=== PATIENT | male | born 1965 | race Caucasian/White ===

== ENCOUNTER 2018-11-03 11:08 | Emergency (ER) | payer MEDICARE ==
[2018-11-03 12:05] LABS: BASOPHIL % 0.5 % (0.0-0.4); Basophil (Absolute #) 0.03 (0-0.4); Eosinophil % 2.9 % (0.00-5.0); Eosinophil (Absolute #) 0.17 (0-0.5); Granulocyte Absolute (ANC) 3.25 (1.4-6.9); Granulocytes % 55.1 % (36.0-66.0); Hematocrit 39.3 % (42-50); Hemoglobin 14.2 gm/dl (12.5-18.0); Lymphocyte (Absolute #) 1.89 (1.0-4.6); Mean Cell Volume 86.2 fl (78-100); Mean Corpuscular Hemoglobin 31.1 pg (26-32); Mean Corpuscular Hgb Concent. 36.1 g/dl (32-36); Mean Platelet Volume 8.7 fl (6-9.5); Monocyte (Absolute #) 0.56 (0.0-1.3); Monocytes % 9.5 % (0.0-12.0); Platelet Count 349 K/mm3 (150-450); Red Blood Count 4.56 M/mm3 (4.1-5.6); Red Cell Distribution Width 13.6 % (11.5-14.0); White Blood Count 5.9 K/mm3 (4.0-10.5)
[2018-11-03 12:32] LABS: ALBUMIN 3.9 g/dL (3.5-5.0); ALKALINE PHOSPHATASE 98 U/L (38-126); ANION GAP 9.6 MEQ/L (5-15); BLOOD UREA NITROGEN 9 mg/dL (9-20); CHLORIDE 105 mmol/L (98-107); Calcium 8.8 mg/dL (8.4-10.2); Carbon Dioxide 28 mmol/L (22-30); Creatinine 1 0.86 mg/dL (0.66-1.25); Glucose 97 mg/dL (74-106); Potassium 3.6 mmol/L (3.5-5.1); SGOT/AST 24 U/L (17-59); SGPT/ALT 24 U/L (0-50); SODIUM 139 mmol/L (137-145); Total Protein 6.9 g/dL (6.3-8.2)
--- NOTE | 2018-11-03 16:03 | ERPHSYRPT ---
- History of Present Illness Historian: patient Exam Limitations: no limitations Patient Subjective Stated Complaint: STATES HAD SUDDEN ONSET OF CHEST PAIN THIS AM AT 0130. TOOK A NTG WITH RELIEF. PAIN CAME BACK JUST PRIOR TO ARRIVAL AND TOOK ANOTHER NITRO WITH RELIEF. Triage Nursing Assessment: AMBULATED TO ROOM PER SELF. SKIN W/D, COLOR NORMAL, RESP NONLABORED. HEART TONES REGULAR. Physician History: Pt is a 52 y/o male that woke up in the middle of the night with chest pain. He took a Nitro tab and went back to sleep. Then in the morning he had chest pain again, and he took another Nitro tab and came to the ER. The pt states, no abdominal pain. No N/V/D or diaphoresis. he had a cardiac cath recently that was negative. Pt states, the chest pain is not reproducible, no SOB or cough. No dysuria, frequency or urgency. Timing/Duration: today Activities at Onset: sleep Quality: pressure, tightness Location: substernal, back Chest Pain Radiation: back Severity of Pain-Max: moderate Severity of Pain-Current: moderate Modifying Factors: Improves With: nitroglycerin Associated Symptoms: back pain Prior Chest Pain/Cardiac Workup: cardiac cath Nitro Today/Relief: 0.4 mg x 2 Aspirin Treatment Today: no aspirin today Allergies/Adverse Reactions: Penicillins Allergy (Verified 11/03/18 11:26) Hx Tetanus, Diphtheria Vaccination/Date Given: Yes Hx Influenza Vaccination/Date Given: Yes Hx Pneumococcal Vaccination/Date Given: No - Review of Systems Constitutional: No Fever, No Chills Eyes: No Symptoms Ears, Nose, & Throat: No Symptoms Respiratory: No Cough, No Dyspnea Cardiac: Chest Pain, No Edema, No Syncope Abdominal/Gastrointestinal: No Abdominal Pain, No Nausea, No Vomiting, No Diarrhea Genitourinary Symptoms: No Dysuria Musculoskeletal: Back Pain Skin: No Rash Neurological: No Dizziness, No Focal Weakness, No Sensory Changes - Past Medical History Pertinent Past Medical History: Yes Endocrine Medical History: Thyroid Cancer Other Medical History: THYROID CANCER WITH METS - Past Surgical History Past Surgical History: Yes Other Surgical History: THYROIDECTOMY, ESOPHAGUS SURGERY - Social History Smoking Status: Never smoker Exposure to second hand smoke: Yes Drug Use: none Patient Lives Alone: No - Nursing Vital Signs Nursing Vital Signs: Initial Vital Signs Temperature 98.5 F 11/03/18 11:09 Pulse Rate 90 11/03/18 11:09 Respiratory Rate 16 11/03/18 11:09 Blood Pressure 162/92 11/03/18 11:09 O2 Sat by Pulse Oximetry 98 11/03/18 11:09 Pain Scale Pain Intensity 2 - Physical Exam General Appearance: no apparent distress, alert Eye Exam: PERRL/EOMI, eyes nml inspection Ears, Nose, Throat Exam: normal ENT inspection, moist mucous membranes Neck Exam: normal inspection, non-tender, supple, full range of motion Respiratory Exam: normal breath sounds, lungs clear, No respiratory distress Cardiovascular Exam: regular rate/rhythm, normal heart sounds Gastrointestinal/Abdomen Exam: soft, No tenderness, No mass Back Exam: normal inspection, No CVA tenderness, No vertebral tenderness Extremity Exam: normal inspection, normal range of motion SpO2: 96 - Course Nursing assessment & vital signs reviewed: Yes EKG Interpreted by Me: RATE (89bpm), Non-specific ST Changes Ordered Tests: Active Orders 24 hr Category Date Time Status CBC W DIFF Stat Lab 11/03/18 11:50 Completed CMP Stat Lab 11/03/18 11:50 Completed D-DIMER QUANTITATION Stat Lab 11/03/18 11:50 Completed NT PRO BNP Stat Lab 11/03/18 11:50 Completed TROPONIN Q3H Lab 11/03/18 11:50 Completed TROPONIN Q3H Lab 11/03/18 14:55 Completed TROPONIN Q3H Lab 11/03/18 17:45 Ordered TROPONIN Q3H Lab 11/03/18 20:45 Ordered TROPONIN Q3H Lab 11/03/18 23:45 Ordered TSH [TSH, 3RD Generation] Stat Lab 11/03/18 11:50 Completed Lab/Rad Data: Laboratory Result Diagrams 11/03/18 11:50 11/03/18 11:50 Laboratory Results 11/03/18 11/03/18 11/03/18 Range/Units 14:55 11:50 11:50 WBC (4.0-10.5) K/mm3 RBC (4.1-5.6) M/mm3 Hgb (12.5-18.0) gm/dl Hct (42-50) % MCV (78-100) fl MCH (26-32) pg MCHC (32-36) g/dl RDW (11.5-14.0) % Plt Count (150-450) K/mm3 MPV (6-9.5) fl Gran % (36.0-66.0) % Eos # (Auto) (0-0.5) Absolute Lymphs (auto) (1.0-4.6) Absolute Monos (auto) (0.0-1.3) Lymphocytes % (24.0-44.0) % Monocytes % (0.0-12.0) % Eosinophils % (0.00-5.0) % Basophils % (0.0-0.4) % Absolute Granulocytes (1.4-6.9) Basophils # (0-0.4) D-Dimer (215-500) ng/mL Sodium (137-145) mmol/L Potassium (3.5-5.1) mmol/L Chloride (98-107) mmol/L Carbon Dioxide (22-30) mmol/L Anion Gap (5-15) MEQ/L BUN (9-20) mg/dL Creatinine (0.66-1.25) mg/dL Estimated GFR ML/MIN Glucose (74-106) mg/dL Calcium (8.4-10.2) mg/dL Total Bilirubin (0.2-1.3) mg/dL AST (17-59) U/L ALT (0-50) U/L Alkaline Phosphatase (38-126) U/L Troponin I < 0.012 < 0.012 (0.000-0.034) ng/mL NT-Pro-B Natriuret Pep (0-900) pg/mL Serum Total Protein (6.3-8.2) g/dL Albumin (3.5-5.0) g/dL TSH 3rd Generation 11.900 H (0.47-4.68) mIU/L 11/03/18 11/03/18 11/03/18 Range/Units 11:50 11:50 11:50 WBC 5.9 (4.0-10.5) K/mm3 RBC 4.56 (4.1-5.6) M/mm3 Hgb 14.2 (12.5-18.0) gm/dl Hct 39.3 L (42-50) % MCV 86.2 (78-100) fl MCH 31.1 (26-32) pg MCHC 36.1 H (32-36) g/dl RDW 13.6 (11.5-14.0) % Plt Count 349 (150-450) K/mm3 MPV 8.7 (6-9.5) fl Gran % 55.1 (36.0-66.0) % Eos # (Auto) 0.17 (0-0.5) Absolute Lymphs (auto) 1.89 (1.0-4.6) Absolute Monos (auto) 0.56 (0.0-1.3) Lymphocytes % 32.0 (24.0-44.0) % Monocytes % 9.5 (0.0-12.0) % Eosinophils % 2.9 (0.00-5.0) % Basophils % 0.5 (0.0-0.4) % Absolute Granulocytes 3.25 (1.4-6.9) Basophils # 0.03 (0-0.4) D-Dimer < 215 L (215-500) ng/mL Sodium 139 (137-145) mmol/L Potassium 3.6 (3.5-5.1) mmol/L Chloride 105 (98-107) mmol/L Carbon Dioxide 28 (22-30) mmol/L Anion Gap 9.6 (5-15) MEQ/L BUN 9 (9-20) mg/dL Creatinine 0.86 (0.66-1.25) mg/dL Estimated GFR > 60.0 ML/MIN Glucose 97 (74-106) mg/dL Calcium 8.8 (8.4-10.2) mg/dL Total Bilirubin 0.40 (0.2-1.3) mg/dL AST 24 (17-59) U/L ALT 24 (0-50) U/L Alkaline Phosphatase 98 (38-126) U/L Troponin I (0.000-0.034) ng/mL NT-Pro-B Natriuret Pep 31.0 (0-900) pg/mL Serum Total Protein 6.9 (6.3-8.2) g/dL Albumin 3.9 (3.5-5.0) g/dL TSH 3rd Generation (0.47-4.68) mIU/L - Progress Progress: improved Air Movement: good Progress Note: 11/03/18 16:01 Pt was seen and examined. Troponins x2 were negative. TSH was elevated. D Dimer is negative, Pro BNP, CBC and BMP are all normal. Pt was cleared for d/ c. He should f/u with his PCP, regarding his Synthroid dose and FT4 level work up. Blood Culture(s) Obtained: No Antibiotics given: No Will see patient in: office Counseled pt/family regarding: need for follow-up - Departure Departure Disposition: Home Clinical Impression: Chest pain Condition: Stable Critical Care Time: No Referrals: ATTILA KAPOOR [Primary Care Provider] - Additional Instructions: F/U with PCP. Make sure that FT4 and TSH are checked and meds are adjusted.
[2018-11-03 16:37] VITALS: BP 177/109; PULSE 72; O2SAT 95
== END 2018-11-03 16:32 | disposition home or self-care (01) ==
LOC: ED 11:08
DX: R07.89 Other chest pain (principal); Z85.850 Personal history of malignant neoplasm of thyroid
CPT/HCPCS: 36000; 36415; 80053; 83880; 84443; 84484; 85025; 85379; 99284

== ENCOUNTER 2019-03-05 10:11 | Emergency (ER) | payer MEDICARE ==
--- NOTE | 2019-03-05 10:19 | ERPHSYRPT ---
- History of Present Illness Time Seen by Provider: 03/05/19 10:19 Historian: patient Exam Limitations: no limitations Physician History: 53 y/o white male with h/o htn and no abd surgeries presents with right side abd pain for 2 weeks and dizziness and a brief change in vision this am. pt took his bp meds this am. n/v this am. no diarrhea. no other flu like sx. Timing/Duration: week(s) (2) Activities at Onset: none Quality: aching Abdominal Pain Onset Location: RUQ, RLQ Pain Radiation: back Severity of Pain-Max: moderate Severity of Pain-Current: moderate Associated Symptoms: nausea, vomiting, No chest pain, No fever/chills Previous symptoms: no prior history Allergies/Adverse Reactions: Penicillins Allergy (Verified 03/05/19 10:36) Home Medications: Albuterol Sulfate [Albuterol Sulfate Hfa] 2 puffs IH QID 03/05/19 [History] Levothyroxine Sodium 150 Mcg [Synthroid 150 Mcg] 150 mcg PO DAILY 03/05/19 [History] Methylphenidate HCl [Methylphenidate ER] 20 mg PO BID 03/05/19 [History] Propranolol HCl 20 mg [Inderal 20 MG] 20 mg PO TID 03/05/19 [History] Tiotropium Br/Olodaterol HCl [Stiolto Respimat Inhal [place]] 2 puffs IH DAILY [History] Hx Tetanus, Diphtheria Vaccination/Date Given: Yes Hx Influenza Vaccination/Date Given: Yes Hx Pneumococcal Vaccination/Date Given: No - Review of Systems Constitutional: No Symptoms Eyes: No Symptoms Ears, Nose, & Throat: No Symptoms Respiratory: No Symptoms Cardiac: No Symptoms, No Chest Pain, No Palpitations, No Syncope Abdominal/Gastrointestinal: Abdominal Pain, Nausea, Vomiting, No Diarrhea Genitourinary Symptoms: No Symptoms Musculoskeletal: No Symptoms Skin: No Symptoms Neurological: Dizziness, Other (brief changes) Psychological: No Symptoms Endocrine: No Symptoms Hematologic/Lymphatic: No Symptoms Immunological/Allergic: No Symptoms All Other Systems: Reviewed and Negative - Past Medical History Pertinent Past Medical History: Yes Neurological History: No Pertinent History ENT History: No Pertinent History Cardiac History: No Pertinent History Respiratory History: No Pertinent History Endocrine Medical History: Thyroid Cancer Musculoskeletal History: No Pertinent History GI Medical History: No Pertinent History History: No Pertinent History Psycho-Social History: No Pertinent History Male Reproductive Disorders: No Pertinent History Other Medical History: THYROID CANCER WITH METS - Past Surgical History Past Surgical History: Yes Neuro Surgical History: No Pertinent History Cardiac: No Pertinent History Respiratory: No Pertinent History Gastrointestinal: No Pertinent History Genitourinary: No Pertinent History Musculoskeletal: No Pertinent History Male Surgical History: No Pertinent History Other Surgical History: THYROIDECTOMY, ESOPHAGUS SURGERY - Social History Smoking Status: Never smoker Exposure to second hand smoke: Yes Drug Use: none Patient Lives Alone: No - Nursing Vital Signs Nursing Vital Signs: Initial Vital Signs Temperature 97.9 F 03/05/19 10:17 Pulse Rate 84 03/05/19 10:17 Respiratory Rate 20 03/05/19 10:17 Blood Pressure 210/143 03/05/19 10:17 O2 Sat by Pulse Oximetry 100 03/05/19 10:17 Pain Scale Pain Intensity 0 - Physical Exam General Appearance: no apparent distress, alert, anxiety Eye Exam: PERRL/EOMI, eyes nml inspection Ears, Nose, Throat Exam: normal ENT inspection, moist mucous membranes Neck Exam: normal inspection, non-tender, supple, full range of motion Respiratory Exam: normal breath sounds, lungs clear, airway intact, No chest tenderness, No respiratory distress Cardiovascular Exam: regular rate/rhythm, normal heart sounds, normal peripheral pulses Gastrointestinal/Abdomen Exam: soft, normal bowel sounds, tenderness (right side ), guarding, No distention, No mass, No rebound Rectal Exam: not done Back Exam: normal inspection, normal range of motion, No CVA tenderness, No vertebral tenderness Extremity Exam: normal inspection, normal range of motion, pelvis stable Neurologic Exam: alert, oriented x 3, cooperative, decoration checker II-XII nml as tested Skin Exam: normal color, warm, dry Lymphatic Exam: No adenopathy SpO2 Interpretation: normal O2 Delivery: Room Air - Course Nursing assessment & vital signs reviewed: Yes EKG Interpreted by Me: RATE (78), Sinus Rhythm, NORMAL AXIS, NORMAL INTERVALS, NORMAL QRS, Right Bundle Branch Block, Other (left ant fascicular block) Ordered Tests: Active Orders 24 hr Category Date Time Status EKG-ER Only STAT Care 03/05/19 10:43 Active IV Insertion STAT Care 03/05/19 10:43 Active ABDOMEN AND PELVIS W/0 CONTRAS [CT] Stat Exams 03/05/19 10:44 Completed HEAD WITHOUT CONTRAST [CT] Stat Exams 03/05/19 10:45 Completed AMYLASE Stat Lab 03/05/19 10:55 Completed CBC W DIFF Stat Lab 03/05/19 10:55 Completed CMP Stat Lab 03/05/19 10:55 Completed LIPASE Stat Lab 03/05/19 10:55 Completed Lactic Acid Stat Lab 03/05/19 10:58 Completed Lactic Acid Stat Lab 03/05/19 13:00 Ordered TROPONIN Q3H Lab 03/05/19 10:55 Completed TROPONIN Q3H Lab 03/05/19 13:45 Ordered TROPONIN Q3H Lab 03/05/19 16:45 Ordered TROPONIN Q3H Lab 03/05/19 19:45 Ordered TROPONIN Q3H Lab 03/05/19 22:45 Ordered UA W/RFX UR CULTURE Stat Lab 03/05/19 12:28 Completed Medication Summary Discontinued Medications Generic Name Dose Route Start Last Admin Trade Name Freq PRN Reason Stop Dose Admin Hydromorphone HCl 1 mg 03/05/19 13:09 03/05/19 13:17 Hydromorphone 1 Mg/Ml Ampule IV 03/05/19 13:10 1 mg STAT ONE Administration Hydromorphone HCl Confirm 03/05/19 13:15 Hydromorphone 1 Mg/Ml Ampule Administered 03/05/19 13:16 Dose 1 mg .ROUTE .STK-MED ONE Metoprolol Tartrate 5 mg 03/05/19 12:35 03/05/19 12:45 Lopressor 5 Mg/5 Ml Injection IV 03/05/19 12:36 5 mg STAT ONE Administration Metoprolol Tartrate Confirm 03/05/19 12:43 Lopressor 5 Mg/5 Ml Injection Administered 03/05/19 12:44 Dose 5 mg IV .STK-MED ONE Ondansetron HCl 4 mg 03/05/19 10:43 03/05/19 10:49 Zofran 4 Mg/2 Ml Vial IV 03/05/19 10:44 4 mg STAT ONE Administration Ondansetron HCl Confirm 03/05/19 10:47 Zofran 4 Mg/2 Ml Vial Administered 03/05/19 10:48 Dose 4 mg .ROUTE .STK-MED ONE Potassium Chloride 10 meq 03/05/19 12:47 03/05/19 13:18 Klor Con 10 Meq PO 03/05/19 12:48 10 meq STAT ONE Administration Potassium Chloride Confirm 03/05/19 13:14 Klor Con 10 Meq Administered 03/05/19 13:15 Dose 10 meq PO .STK-MED ONE Lab/Rad Data: Laboratory Result Diagrams 03/05/19 10:55 03/05/19 10:55 Laboratory Results 03/05/19 03/05/19 03/05/19 Range/Units 12:28 10:58 10:55 WBC (4.0-10.5) K/mm3 RBC (4.1-5.6) M/mm3 Hgb (12.5-18.0) gm/dl Hct (42-50) % MCV (78-100) fl MCH (26-32) pg MCHC (32-36) g/dl RDW (11.5-14.0) % Plt Count (150-450) K/mm3 MPV (6-9.5) fl Gran % (36.0-66.0) % Eos # (Auto) (0-0.5) Absolute Lymphs (auto) (1.0-4.6) Absolute Monos (auto) (0.0-1.3) Lymphocytes % (24.0-44.0) % Monocytes % (0.0-12.0) % Eosinophils % (0.00-5.0) % Basophils % (0.0-0.4) % Absolute Granulocytes (1.4-6.9) Basophils # (0-0.4) Sodium (137-145) mmol/L Potassium (3.5-5.1) mmol/L Chloride (98-107) mmol/L Carbon Dioxide (22-30) mmol/L Anion Gap (5-15) MEQ/L BUN (9-20) mg/dL Creatinine (0.66-1.25) mg/dL Estimated GFR ML/MIN Glucose (74-106) mg/dL Lactic Acid 1.9 (0.4-2.0) Calcium (8.4-10.2) mg/dL Total Bilirubin (0.2-1.3) mg/dL AST (17-59) U/L ALT (0-50) U/L Alkaline Phosphatase (38-126) U/L Troponin I < 0.012 (0.000-0.034) ng/mL Serum Total Protein (6.3-8.2) g/dL Albumin (3.5-5.0) g/dL Amylase (30-110) U/L Lipase (23-300) U/L Urine Color STRAW (YELLOW) Urine Appearance CLEAR (CLEAR) Urine pH 7.0 (5-6) Ur Specific [place] 1.005 (1.005-1.025) Urine Protein NEGATIVE (Negative) Urine Ketones NEGATIVE (NEGATIVE) Urine Blood NEGATIVE (0-5) Mendoza/ul Urine Nitrite NEGATIVE (NEGATIVE) Urine Bilirubin NEGATIVE (NEGATIVE) Urine Urobilinogen NEGATIVE (0-1) mg/dL Ur Leukocyte Esterase NEGATIVE (NEGATIVE) Urine WBC (Auto) 0-2 (0-5) /HPF Urine RBC (Auto) 0-2 (0-2) /HPF U Epithel Cells (Auto) RARE (FEW) /HPF Urine Bacteria (Auto) RARE (NEGATIVE) /HPF Urine Culture Reflexed NO (NO) Urine Glucose NEGATIVE (NEGATIVE) mg/dL 03/05/19 03/05/19 Range/Units 10:55 10:55 WBC 6.9 (4.0-10.5) K/mm3 RBC 4.72 (4.1-5.6) M/mm3 Hgb 13.9 (12.5-18.0) gm/dl Hct 40.9 L (42-50) % MCV 86.7 (78-100) fl MCH 29.4 (26-32) pg MCHC 34.0 (32-36) g/dl RDW 15.2 H (11.5-14.0) % Plt Count 415 (150-450) K/mm3 MPV 9.1 (6-9.5) fl Gran % 52.4 (36.0-66.0) % Eos # (Auto) 0.28 (0-0.5) Absolute Lymphs (auto) 2.22 (1.0-4.6) Absolute Monos (auto) 0.70 (0.0-1.3) Lymphocytes % 32.3 (24.0-44.0) % Monocytes % 10.2 (0.0-12.0) % Eosinophils % 4.1 (0.00-5.0) % Basophils % 1.0 (0.0-0.4) % Absolute Granulocytes 3.60 (1.4-6.9) Basophils # 0.07 (0-0.4) Sodium 143 (137-145) mmol/L Potassium 3.1 L (3.5-5.1) mmol/L Chloride 103 (98-107) mmol/L Carbon Dioxide 30 (22-30) mmol/L Anion Gap 13.2 (5-15) MEQ/L BUN 9 (9-20) mg/dL Creatinine 0.87 (0.66-1.25) mg/dL Estimated GFR > 60.0 ML/MIN Glucose 114 H (74-106) mg/dL Lactic Acid (0.4-2.0) Calcium 9.4 (8.4-10.2) mg/dL Total Bilirubin 0.40 (0.2-1.3) mg/dL AST 33 (17-59) U/L ALT 42 (0-50) U/L Alkaline Phosphatase 84 (38-126) U/L Troponin I (0.000-0.034) ng/mL Serum Total Protein 7.9 (6.3-8.2) g/dL Albumin 4.3 (3.5-5.0) g/dL Amylase 81 (30-110) U/L Lipase 162 (23-300) U/L Urine Color (YELLOW) Urine Appearance (CLEAR) Urine pH (5-6) Ur Specific [place] (1.005-1.025) Urine Protein (Negative) Urine Ketones (NEGATIVE) Urine Blood (0-5) Mendoza/ul Urine Nitrite (NEGATIVE) Urine Bilirubin (NEGATIVE) Urine Urobilinogen (0-1) mg/dL Ur Leukocyte Esterase (NEGATIVE) Urine WBC (Auto) (0-5) /HPF Urine RBC (Auto) (0-2) /HPF U Epithel Cells (Auto) (FEW) /HPF Urine Bacteria (Auto) (NEGATIVE) /HPF Urine Culture Reflexed (NO) Urine Glucose (NEGATIVE) mg/dL - Progress Progress: improved Progress Note: 03/05/19 13:22 ct abd/pelvis-negative for acute process ct head-negative for acute process. 03/05/19 13:25 spoke again with pt. he in fact did not take his bp meds as prescribed. he does not want admission or transfer for tx of his bp. Counseled pt/family regarding: lab results, diagnosis, need for follow-up, rad results - Departure Departure Disposition: Home Clinical Impression: Abdominal pain, Dizziness, Hypokalemia, Hypertensive urgency Condition: Stable Critical Care Time: Yes Critical Care Time(excluding separately billable procedures): Critical 30-74 mins Referrals: ATTILA KAPOOR [Primary Care Provider] - Additional Instructions: take your blood pressure medications as prescribed. follow up with your prescribing doctor for any changes to your blood pressure medications.
[2019-03-05] MEDS ORDERED: Zofran 4 MG/2 ML VIAL IV ONE (10:43)
[2019-03-05] MEDS ORDERED: Zofran 4 MG/2 ML VIAL ONE (10:47)
[2019-03-05 10:59] LABS: Basophil (Absolute #) 0.07 (0-0.4); Eosinophil % 4.1 % (0.00-5.0); Eosinophil (Absolute #) 0.28 (0-0.5); Hematocrit 40.9 % (42-50); Hemoglobin 13.9 gm/dl (12.5-18.0); Lymphocyte (Absolute #) 2.22 (1.0-4.6); Lymphocytes % 32.3 % (24.0-44.0); Mean Cell Volume 86.7 fl (78-100); Mean Corpuscular Hemoglobin 29.4 pg (26-32); Mean Platelet Volume 9.1 fl (6-9.5); Monocytes % 10.2 % (0.0-12.0); Neutrophil % 52.4 % (36.0-66.0); Platelet Count 415 K/mm3 (150-450); Red Blood Count 4.72 M/mm3 (4.1-5.6); Red Cell Distribution Width 15.2 % (11.5-14.0); White Blood Count 6.9 K/mm3 (4.0-10.5)
[2019-03-05 11:01] LABS: Lactic Acid 1.9 (0.4-2.0)
--- NOTE | 2019-03-05 11:48 | XRAY ---
Indication: Dizziness. Blindness. Multiple contiguous axial images obtained through the head without contrast. Comparison: None Ventriculosulcal pattern appears symmetric. Right basal ganglia remote lacunar infarct. No acute intracranial hemorrhage, abnormal extra-axial fluid question, or mass effect. Fourth ventricle is midline without hydrocephalus. Barron-white matter differentiation preserved. Bony calvarium intact. Visualized paranasal sinuses and mastoid air cells are clear. Impression: Right basal ganglia remote lacunar infarct. Remaining CT head without contrast exam is negative. CTDI 59.55
--- NOTE | 2019-03-05 11:54 | XRAY ---
Indication: Chest/abdomen pain 1 year. Multiple contiguous axial images obtained through the abdomen and pelvis without contrast as ordered. Comparison: CT renal stone study June 09, 2006. Lung bases again demonstrates minimal left base fibrosis/scarring. No infiltrate or effusion. Heart is not enlarged. Interval enlarging moderate-sized hiatal hernia with now partial intrathoracic stomach and mild herniated omental fat. Noncontrasted stomach and bowel loops appear nonobstructed. Normal appendix. Minimal scattered descending and sigmoid diverticulosis. No free fluid/air. Again diffuse fatty liver. Remaining liver, gallbladder, pancreas, spleen, adrenal glands, kidneys, ureters, and bladder appear unremarkable for noncontrast exam. Minimal aortic calcifications without AAA. Osseous structures intact with mild degenerative changes throughout the lumbar spine. Impression: 1. Worsening moderate-sized hiatal hernia. 2. Incidental fatty liver and colonic diverticulosis. 3. Remaining CT abdomen/pelvis without contrast exam is negative. CT DI 24.14
[2019-03-05 12:08] LABS: ALBUMIN 4.3 g/dL (3.5-5.0); ALKALINE PHOSPHATASE 84 U/L (38-126); AMYLASE 81 U/L (30-110); ANION GAP 13.2 MEQ/L (5-15); BLOOD UREA NITROGEN 9 mg/dL (9-20); CHLORIDE 103 mmol/L (98-107); Calcium 9.4 mg/dL (8.4-10.2); Carbon Dioxide 30 mmol/L (22-30); Creatinine 1 0.87 mg/dL (0.66-1.25); Glucose 114 mg/dL (74-106); LIPASE 162 U/L (23-300); SGOT/AST 33 U/L (17-59); SGPT/ALT 42 U/L (0-50); SODIUM 143 mmol/L (137-145); Total Protein 7.9 g/dL (6.3-8.2)
[2019-03-05 12:10] LABS: Potassium 3.1 mmol/L (3.5-5.1)
[2019-03-05] MEDS ORDERED: LOPRESSOR 5 MG/5 ML INJECTION IV ONE ×2 (12:35→12:43)
[2019-03-05] MEDS ORDERED: Klor Con 10 MEQ PO ONE ×2 (12:47→13:14)
[2019-03-05 13:07] LABS: Appearance CLEAR (CLEAR); Bilirubin NEGATIVE (NEGATIVE); Blood NEGATIVE Ery/ul (0-5); Glucose NEGATIVE (NEGATIVE); Ketones NEGATIVE (NEGATIVE); Leukocyte Esterase NEGATIVE (NEGATIVE); Nitrite NEGATIVE (NEGATIVE); Protein,Urine Dip NEGATIVE (Negative); Specific Gravity 1.005 (1.005-1.025); Urobilinogen NEGATIVE mg/dL (0-1)
[2019-03-05] MEDS ORDERED: Hydromorphone 1 mg/ml Ampule IV ONE (13:09)
[2019-03-05 13:11] LABS: Epithelial Cells RARE /HPF (FEW); RBC 0-2 /HPF (0-2); WBC 0-2 /HPF (0-5)
[2019-03-05 13:12] LABS: Bacteria RARE /HPF (NEGATIVE)
[2019-03-05] MEDS ORDERED: Hydromorphone 1 mg/ml Ampule ONE (13:15)
[2019-03-05 13:34] VITALS: BP 174/100; PULSE 72; O2SAT 98
== END 2019-03-05 13:40 | disposition home or self-care (01) ==
LOC: ED 10:11
DX: R10.9 Unspecified abdominal pain (principal); R42 Dizziness and giddiness; P74.32 Hypokalemia of newborn; I16.0 Hypertensive urgency
CPT/HCPCS: 36000; 36415; 70450; 74176; 80053; 81001; 82150; 83605; 83690; 84484; 85025; 93005; 96374; 96375; 99284; 99291; J1170; J2405; A9270-GY

== ENCOUNTER 2019-12-28 06:39 | Emergency (ER) | payer MEDICARE, OTHER ==
[2019-12-28] MEDS ORDERED: PROTONIX 40 MG IV IV ONE ×2 (07:14→07:35)
--- NOTE | 2019-12-28 07:14 | ERPHSYRPT ---
- History of Present Illness Time Seen by Provider: 12/28/19 07:00 Source: patient Exam Limitations: no limitations Patient Subjective Stated Complaint: pt states that he woke up to throwing up blood, pt states that he is throwing up clots, pt states that he has taken 3 sh ower because he had been bleeding so much Triage Nursing Assessment: pt ambulated into the er, pt is axo x3, c/o epistasis for past 2 hours, left nare has minimal bleeding, no blood present in rt nare, mucus membrane pink and moist, to bleeding present in throat, hypertensive, denies pain Physician History: This is a 54-year-old white male who has history of thyroid cancer and has had a thyroidectomy in the past and also has a history of Marcus's esophagus. Patient is only taking thyroid replacement medicine and none of his other medication at this time. Patient's Marcus's esophagus is being followed by a cattle tester in [place]. He states that his cattle tester there is nothing else they can do for his Marcus's esophagus. Patient has no bleeding or clotting disorders. He is not taking any aspirin or NSAIDs. This morning, at 5 AM, the patient coughed up a large amount of blood. There is no active bleeding at this time. The patient states the blood went into his nose as well as mouth in the spit it up. Patient denies pain of any kind. Timing/Duration: resolved prior to arrival, sudden Severity: mild Associated Symptoms: denies symptoms Allergies/Adverse Reactions: Penicillins Allergy (Severe, Verified 12/28/19 06:49) Anaphylactic Reaction Home Medications: Levothyroxine Sodium 150 Mcg [Synthroid 150 Mcg] 200 mcg PO DAILY 03/05/19 [History] Hx Tetanus, Diphtheria Vaccination/Date Given: Yes Hx Influenza Vaccination/Date Given: Yes Hx Pneumococcal Vaccination/Date Given: No Travel Risk - International Travel Have you traveled outside of the country in past 3 weeks: No (N) If Yes, where;: N - Coronavirus Screening Are you exhibiting any of the following symptoms?: No Close contact with a COVID-19 positive Pt in past 14-21 Days: No - Review of Systems Constitutional: No Symptoms Eyes: No Symptoms Ears, Nose, & Throat: No Symptoms Respiratory: Cough, Other (Hemoptysis) Cardiac: No Symptoms Abdominal/Gastrointestinal: No Symptoms Genitourinary Symptoms: No Symptoms Musculoskeletal: No Symptoms Skin: No Symptoms Neurological: No Symptoms Psychological: No Symptoms Endocrine: No Symptoms Hematologic/Lymphatic: No Symptoms Immunological/Allergic: No Symptoms All Other Systems: Reviewed and Negative - Past Medical History Pertinent Past Medical History: Yes Neurological History: TIA ENT History: No Pertinent History Cardiac History: No Pertinent History Respiratory History: No Pertinent History Endocrine Medical History: Thyroid Cancer Musculoskeletal History: No Pertinent History GI Medical History: No Pertinent History History: No Pertinent History Psycho-Social History: No Pertinent History Male Reproductive Disorders: No Pertinent History Other Medical History: THYROID CANCER WITH METS, esophagus cancer, ms - Past Surgical History Past Surgical History: Yes Neuro Surgical History: No Pertinent History Cardiac: No Pertinent History Respiratory: No Pertinent History Gastrointestinal: No Pertinent History Genitourinary: No Pertinent History Musculoskeletal: No Pertinent History Male Surgical History: No Pertinent History Other Surgical History: THYROIDECTOMY, ESOPHAGUS SURGERY - Social History Smoking Status: Never smoker Exposure to second hand smoke: Yes Drug Use: none Patient Lives Alone: Yes - Nursing Vital Signs Nursing Vital Signs: Initial Vital Signs Temperature 98.6 F 12/28/19 06:51 Pulse Rate 91 H 12/28/19 06:51 Respiratory Rate 22 12/28/19 06:51 Blood Pressure 172/108 12/28/19 06:51 O2 Sat by Pulse Oximetry 97 12/28/19 06:51 Pain Scale Pain Intensity 0 - Physical Exam General Appearance: no apparent distress, alert, anxiety Eye Exam: PERRL/EOMI, eyes nml inspection Ears, Nose, Throat Exam: normal ENT inspection, moist mucous membranes Neck Exam: normal inspection, non-tender, supple, full range of motion Respiratory Exam: normal breath sounds, lungs clear, airway intact, No chest tenderness, No respiratory distress Cardiovascular Exam: regular rate/rhythm, normal heart sounds, normal peripheral pulses Gastrointestinal/Abdomen Exam: soft, normal bowel sounds, No tenderness Rectal Exam: not done Back Exam: normal inspection, normal range of motion, No CVA tenderness, No vertebral tenderness Extremity Exam: normal inspection, normal range of motion, pelvis stable Neurologic Exam: alert, oriented x 3, cooperative, digital marketing specialist II-XII nml as tested, normal mood/affect, nml cerebellar function, nml station & gait, sensation nml Skin Exam: normal color, warm, dry Lymphatic Exam: No adenopathy SpO2 Interpretation: normal SpO2: 97 O2 Delivery: Room Air - Course Nursing assessment & vital signs reviewed: Yes Ordered Tests: Active Orders 24 hr Category Date Time Status IV Insertion STAT Care 12/28/19 07:14 Active CBC W DIFF Stat Lab 12/28/19 07:35 Completed CMP Stat Lab 12/28/19 07:35 Completed PROTIME WITH INR Stat Lab 12/28/19 07:35 Received Medication Summary Discontinued Medications Generic Name Dose Route Start Last Admin Trade Name Freq PRN Reason Stop Dose Admin Al Hydrox/Mg Hydrox/Simethicone Confirm 12/28/19 08:41 Maalox Es 30 Ml Unit Dose Administered 12/28/19 08:42 Dose 30 ml .ROUTE .STK-MED ONE Lidocaine HCl Confirm 12/28/19 08:41 Xylocaine Hcl Viscous * Administered 12/28/19 08:42 Dose 15 ml .ROUTE .STK-MED ONE Magnesium Hydroxide 45 ml 12/28/19 08:38 12/28/19 08:41 Gi Cocktail 45 Ml (Maalox/Lidocaine) PO 12/28/19 08:39 45 ml STAT ONE Administration Pantoprazole Sodium 40 mg 12/28/19 07:14 12/28/19 07:43 Protonix 40 Mg Iv IV 12/28/19 07:15 40 mg STAT ONE Administration Pantoprazole Sodium Confirm 12/28/19 07:35 Protonix 40 Mg Iv Administered 12/28/19 07:36 Dose 40 mg IV .STK-MED ONE Sucralfate 1,000 mg 12/28/19 07:16 12/28/19 07:44 Carafate Suspension 1000 Mg/10 Ml PO 12/28/19 07:17 1,000 mg STAT ONE Administration Lab/Rad Data: Laboratory Result Diagrams 12/28/19 07:35 12/28/19 07:35 Laboratory Results 12/28/19 12/28/19 Range/Units 07:35 07:35 WBC 6.2 (4.0-10.5) K/mm3 RBC 5.09 (4.1-5.6) M/mm3 Hgb 14.1 (12.5-18.0) gm/dl Hct 42.5 (42-50) % MCV 83.5 (78-100) fl MCH 27.7 (26-32) pg MCHC 33.2 (32-36) g/dl RDW 14.2 H (11.5-14.0) % Plt Count 396 (150-450) K/mm3 MPV 8.7 (7.5-11.0) fl Gran % 61.8 (36.0-66.0) % Eos # (Auto) 0.14 (0-0.5) Absolute Lymphs (auto) 1.69 (1.0-4.6) Absolute Monos (auto) 0.50 (0.0-1.3) Lymphocytes % 27.2 (24.0-44.0) % Monocytes % 8.1 (0.0-12.0) % Eosinophils % 2.3 (0.00-5.0) % Basophils % 0.6 (0.0-0.4) % Absolute Granulocytes 3.84 (1.4-6.9) Basophils # 0.04 (0-0.4) Sodium 138 (137-145) mmol/L Potassium 3.2 L (3.5-5.1) mmol/L Chloride 100 (98-107) mmol/L Carbon Dioxide 29 (22-30) mmol/L Anion Gap 11.4 (5-15) MEQ/L BUN 9 (9-20) mg/dL Creatinine 0.92 (0.66-1.25) mg/dL Estimated GFR > 60.0 ML/MIN Glucose 118 H (74-106) mg/dL Calcium 8.9 (8.4-10.2) mg/dL Total Bilirubin 0.80 (0.2-1.3) mg/dL AST 27 (17-59) U/L ALT 32 (0-50) U/L Alkaline Phosphatase 107 (38-126) U/L Serum Total Protein 7.7 (6.3-8.2) g/dL Albumin 4.3 (3.5-5.0) g/dL - Progress Progress: improved, re-examined Progress Note: 12/28/19 09:01 Medical decision making: This patient states he is feeling better. He has had no episodes of hemoptysis or hematemesis. His vital signs are stable and his hemoglobin is also within normal limits. Patient does not want a CAT scan of the chest. I discussed with him the risk benefits and alternatives. Patient will sign a refusal of test. Patient desires to be discharged to home. He will call his cattle tester when he gets home this morning. Counseled pt/family regarding: lab results, diagnosis, need for follow-up - Departure Departure Disposition: Home Clinical Impression: Hematemesis Condition: Stable Critical Care Time: No Referrals: ATTILA KAPOOR [Primary Care Provider] - Additional Instructions: Drink plenty of fluids. Advance your diet slowly. Call your cattle tester this morning when you get home to arrange follow-up and further management.
[2019-12-28] MEDS ORDERED: Carafate SUSPENSION 1000 MG/10 ML PO ONE (07:16)
[2019-12-28 07:53] LABS: Absolute Neutrophil Ct (ANC) 3.84 (1.4-6.9); BASOPHIL % 0.6 % (0.0-0.4); Basophil (Absolute #) 0.04 (0-0.4); Eosinophil % 2.3 % (0.00-5.0); Eosinophil (Absolute #) 0.14 (0-0.5); Hematocrit 42.5 % (42-50); Hemoglobin 14.1 gm/dl (12.5-18.0); Lymphocyte (Absolute #) 1.69 (1.0-4.6); Lymphocytes % 27.2 % (24.0-44.0); Mean Cell Volume 83.5 fl (78-100); Mean Corpuscular Hemoglobin 27.7 pg (26-32); Mean Corpuscular Hgb Concent. 33.2 g/dl (32-36); Mean Platelet Volume 8.7 fl (7.5-11.0); Monocytes % 8.1 % (0.0-12.0); Neutrophil % 61.8 % (36.0-66.0); Platelet Count 396 K/mm3 (150-450); Red Blood Count 5.09 M/mm3 (4.1-5.6); Red Cell Distribution Width 14.2 % (11.5-14.0); White Blood Count 6.2 K/mm3 (4.0-10.5)
[2019-12-28 08:31] LABS: INR 1.08 (0.8-3.0); PROTIME 12.2 SECONDS (8.83-12.87)
[2019-12-28 08:37] LABS: ALBUMIN 4.3 g/dL (3.5-5.0); ALKALINE PHOSPHATASE 107 U/L (38-126); ANION GAP 11.4 MEQ/L (5-15); BLOOD UREA NITROGEN 9 mg/dL (9-20); CHLORIDE 100 mmol/L (98-107); Calcium 8.9 mg/dL (8.4-10.2); Carbon Dioxide 29 mmol/L (22-30); Creatinine 1 0.92 mg/dL (0.66-1.25); EST GLOMERULAR FILTRATION RATE > 60.0 ML/MIN; Glucose 118 mg/dL (74-106); Potassium 3.2 mmol/L (3.5-5.1); SGOT/AST 27 U/L (17-59); SGPT/ALT 32 U/L (0-50); SODIUM 138 mmol/L (137-145); Total Protein 7.7 g/dL (6.3-8.2)
[2019-12-28] MEDS ORDERED: GI COCKTAIL 45 ML (Maalox/Lidocaine) PO ONE (08:38)
[2019-12-28] MEDS ORDERED: XYLOCAINE HCl Viscous ONE (08:41)
[2019-12-28] MEDS ORDERED: MAALOX ES 30 ML UNIT DOSE ONE (08:41)
[2019-12-28 09:17] VITALS: BP 117/107; PULSE 86; O2SAT 98
== END 2019-12-28 09:22 | disposition home or self-care (01) ==
LOC: ED 06:39
DX: K92.0 Hematemesis (principal)
CPT/HCPCS: 36000; 36415; 80053; 85025; 85610; 96374; 99284; A9270-GY

== ENCOUNTER 2020-04-15 10:00 | Emergency (ER) | payer MEDICARE ==
--- NOTE | 2020-04-15 10:41 | ERPHSYRPT ---
- History of Present Illness Time Seen by Provider: 04/15/20 10:36 Source: patient Exam Limitations: no limitations Patient Subjective Stated Complaint: Pt states that he fell at 0300 and has been having left lower lung pain since, pt also hit the back of his head when he fell Triage Nursing Assessment: Pt brought to the ER by his aunt, hypertensive, sinus rhythm, rates pain 10/10, pt doesn't appear to be in any distress, splinting left lung with pillow, pulses normal, headache in the back of head, skin n/w/d, no difficulties with strength Physician History: pt has narcolepsy and ongoing tx for esoph cancer and thyroid cancer , but has been eating and drinking OK until falling from narcolepsy early this am and now has tender left chest and hit head and with neck pain. Abd is soft and nontender without peritoneal signs or distension. all ext full ROM without pain. Occurred: this morning Reason for Fall: fell from standing pos Injuries/Pain Location: head, neck, chest Loss of Consciousness: brief (seconds) Allergies/Adverse Reactions: Penicillins Allergy (Severe, Verified 04/15/20 10:16) Anaphylactic Reaction Home Medications: Levothyroxine Sodium 150 Mcg [Synthroid 150 Mcg] 175 mcg PO DAILY 03/05/19 [History] Albuterol Sulfate [Albuterol Sulfate Hfa] 1 inh PO UD 04/15/20 [History] Fluticasone/Umeclidin/Vilanter [Trelegy Ellipta 200-62.5-25] 1 each IH UD 04/15/20 [History] Lisinopril 20 mg [Zestril 20 MG] 20 mg PO DAILY 04/15/20 [History] Methylphenidate HCl 20 mg PO BID 04/15/20 [History] Hx Tetanus, Diphtheria Vaccination/Date Given: Yes Hx Influenza Vaccination/Date Given: Yes Hx Pneumococcal Vaccination/Date Given: No Travel Risk - International Travel Have you traveled outside of the country in past 3 weeks: No - Coronavirus Screening Are you exhibiting any of the following symptoms?: No Close contact with a COVID-19 positive Pt in past 14-21 Days: No - Review of Systems Constitutional: No Fever, No Chills Eyes: No Symptoms Ears, Nose, & Throat: No Symptoms Respiratory: No Cough, No Dyspnea Cardiac: Other (chest wall tenderness), No Chest Pain, No Edema, No Syncope Abdominal/Gastrointestinal: No Abdominal Pain, No Nausea, No Vomiting, No D iarrhea Genitourinary Symptoms: No Dysuria Musculoskeletal: No Back Pain, No Neck Pain Skin: No Rash Neurological: No Dizziness, No Focal Weakness, No Sensory Changes Psychological: No Symptoms Endocrine: No Symptoms Hematologic/Lymphatic: No Symptoms Immunological/Allergic: No Symptoms All Other Systems: Reviewed and Negative - Past Medical History Pertinent Past Medical History: Yes Neurological History: TIA ENT History: No Pertinent History Cardiac History: No Pertinent History Respiratory History: COPD Endocrine Medical History: Thyroid Cancer Musculoskeletal History: No Pertinent History GI Medical History: No Pertinent History History: No Pertinent History Psycho-Social History: No Pertinent History Male Reproductive Disorders: No Pertinent History Other Medical History: THYROID CANCER WITH METS, esophagus cancer, ms, narcolepsy - Past Surgical History Past Surgical History: Yes Neuro Surgical History: No Pertinent History Cardiac: No Pertinent History Respiratory: No Pertinent History Gastrointestinal: No Pertinent History Genitourinary: No Pertinent History Musculoskeletal: No Pertinent History Male Surgical History: No Pertinent History Other Surgical History: THYROIDECTOMY, ESOPHAGUS SURGERY - Social History Smoking Status: Never smoker Exposure to second hand smoke: No Drug Use: none Patient Lives Alone: Yes - Nursing Vital Signs Nursing Vital Signs: Initial Vital Signs Temperature 98.3 F 04/15/20 10:03 Pulse Rate 87 04/15/20 10:03 Respiratory Rate 19 04/15/20 10:03 Blood Pressure 183/113 04/15/20 10:03 O2 Sat by Pulse Oximetry 99 04/15/20 10:03 Pain Scale Pain Intensity 5 - [place] Coma Score Best Eye Response (Noris): (4) open spontaneously Best Verbal Response ([place]): (5) oriented Best Motor Response (Noris): (6) obeys commands Noris Total: 15 - Physical Exam General Appearance: no apparent distress, alert Head Injury: no evidence of injury Eye Exam: PERRL/EOMI ENT Exam: airway nml Neck Exam: trachea midline, normal alignment, normal inspection, limited range of motion, paraspinous muscle tender, pain on movement of neck, No tenderness Respiratory/Chest Exam: chest tenderness, normal breath sounds, rib tenderness, No respiratory distress Cardiovascular Exam: normal heart sounds, regular rate/rhythm Gastrointestinal Exam: soft, No tenderness, No distention, No guarding, No ecc hymosis Rectal Exam: deferred Back Exam: normal inspection, No vertebral tenderness Extremity Exam: normal inspection, normal range of motion, pelvis stable, No deformities Peripheral Pulses: carotid (R): 2+, carotid (L): 2+, femoral (R): 2+, femoral (L): 2+, dorsalis-pedis (R): 2+, dorsalis-pedis (L): 2+ Neurologic Exam: alert, oriented x 3, cooperative, nml station & gait, sensation nml, No motor deficits Skin Exam: normal color, warm, dry SpO2 Interpretation: normal SpO2: 99 O2 Delivery: Room Air - Course Nursing assessment & vital signs reviewed: Yes - CT Exams Head CT Interpretation: Tele-radiologist Report, Old Stroke, Other (rad states old CVA finding seen is not clinically significant) Cervical Spine CT Interpretation: Tele-radiologist Report, DJD, No Fracture Chest CT Interpretation: Tele-radiologist Report, No Fracture, Other (lingular atelectasis) Ordered Tests: Active Orders 24 hr Category Date Time Status EKG-ER Only STAT Care 04/15/20 10:42 Active IV Insertion STAT Care 04/15/20 10:42 Active CERVICAL SPINE WO CONTRAST [CT] Stat Exams 04/15/20 10:44 Taken CHEST WITHOUT CONTRAST [CT] Stat Exams 04/15/20 10:44 Taken HEAD WITHOUT CONTRAST [CT] Stat Exams 04/15/20 10:44 Taken CBC W DIFF Stat Lab 04/15/20 10:56 Completed CMP Stat Lab 04/15/20 10:56 Completed Lactic Acid Stat Lab 04/15/20 10:42 Completed TROPONIN Q3H Lab 04/15/20 10:56 Completed TROPONIN Q3H Lab 04/15/20 13:37 Completed TROPONIN Q3H Lab 04/15/20 16:45 Ordered TROPONIN Q3H Lab 04/15/20 19:45 Ordered TROPONIN Q3H Lab 04/15/20 22:45 Ordered UA W/RFX UR CULTURE Stat Lab 04/15/20 13:01 Completed Medication Summary Discontinued Medications Generic Name Dose Route Start Last Admin Trade Name Freq PRN Reason Stop Dose Admin Acetaminophen 500 mg 04/15/20 14:49 04/15/20 14:52 Tylenol Extra Strength 500 Mg PO 04/15/20 14:50 500 mg STAT STA Administration Acetaminophen Confirm 04/15/20 14:52 Tylenol Extra Strength 500 Mg Administered 04/15/20 14:53 Dose 500 mg .ROUTE .STK-MED ONE Diphenhydramine HCl 25 mg 04/15/20 10:42 04/15/20 10:57 Benadryl 50 Mg/Ml IV 04/15/20 10:43 25 mg STAT ONE Administration Diphenhydramine HCl Confirm 04/15/20 10:55 Benadryl 50 Mg/Ml Administered 04/15/20 10:56 Dose 50 mg .ROUTE .STK-MED ONE Sodium Chloride 1,000 mls @ 999 mls/hr 04/15/20 10:42 04/15/20 11:59 Sodium Chloride 0.9% 1000 Ml IV 04/15/20 11:42 Infused .Q1H1M STA Infusion Sodium Chloride Confirm 04/15/20 10:55 Sodium Chloride 0.9% 1000 Ml Administered 04/15/20 10:56 Dose 1,000 mls @ ud .ROUTE .STK-MED ONE Morphine Sulfate 4 mg 04/15/20 10:42 04/15/20 10:57 Morphine Sulfate 4 Mg Inj IV 04/15/20 10:43 4 mg STAT ONE Administration Morphine Sulfate Confirm 04/15/20 10:55 Morphine Sulfate 4 Mg Inj Administered 04/15/20 10:56 Dose 4 mg .ROUTE .STK-MED ONE Morphine Sulfate 4 mg 04/15/20 14:50 04/15/20 14:53 Morphine Sulfate 4 Mg Inj IV 04/15/20 14:51 4 mg STAT ONE Administration Morphine Sulfate Confirm 04/15/20 14:52 Morphine Sulfate 4 Mg Inj Administered 04/15/20 14:53 Dose 4 mg .ROUTE .STK-MED ONE Ondansetron HCl 4 mg 04/15/20 10:42 04/15/20 10:56 Zofran 4 Mg/2 Ml Vial IV 04/15/20 10:43 4 mg STAT ONE Administration Ondansetron HCl Confirm 04/15/20 10:55 Zofran 4 Mg/2 Ml Vial Administered 04/15/20 10:56 Dose 4 mg .ROUTE .STK-MED ONE Lab/Rad Data: Laboratory Result Diagrams 04/15/20 10:56 04/15/20 10:56 Laboratory Results 04/15/20 04/15/20 04/15/20 Range/Units 13:37 13:01 10:56 WBC (4.0-10.5) K/mm3 RBC (4.1-5.6) M/mm3 Hgb (12.5-18.0) gm/dl Hct (42-50) % MCV (78-100) fl MCH (26-32) pg MCHC (32-36) g/dl RDW (11.5-14.0) % Plt Count (150-450) K/mm3 MPV (7.5-11.0) fl Gran % (36.0-66.0) % Eos # (Auto) (0-0.5) Absolute Lymphs (auto) (1.0-4.6) Absolute Monos (auto) (0.0-1.3) Lymphocytes % (24.0-44.0) % Monocytes % (0.0-12.0) % Eosinophils % (0.00-5.0) % Basophils % (0.0-0.4) % Absolute Granulocytes (1.4-6.9) Basophils # (0-0.4) Sodium (137-145) mmol/L Potassium (3.5-5.1) mmol/L Chloride (98-107) mmol/L Carbon Dioxide (22-30) mmol/L Anion Gap (5-15) MEQ/L BUN (9-20) mg/dL Creatinine (0.66-1.25) mg/dL Estimated GFR ML/MIN Glucose (74-106) mg/dL Lactic Acid (0.4-2.0) Calcium (8.4-10.2) mg/dL Total Bilirubin (0.2-1.3) mg/dL AST (17-59) U/L ALT (0-50) U/L Alkaline Phosphatase (38-126) U/L Troponin I < 0.012 < 0.012 (0.000-0.034) ng/mL Serum Total Protein (6.3-8.2) g/dL Albumin (3.5-5.0) g/dL Urine Color STRAW (YELLOW) Urine Appearance CLEAR (CLEAR) Urine pH 8.0 (5-6) Ur Specific [place] 1.004 (1.005-1.025) Urine Protein NEGATIVE (Negative) Urine Ketones NEGATIVE (NEGATIVE) Urine Blood NEGATIVE (0-5) Mendoza/ul Urine Nitrite NEGATIVE (NEGATIVE) Urine Bilirubin NEGATIVE (NEGATIVE) Urine Urobilinogen NEGATIVE (0-1) mg/dL Ur Leukocyte Esterase NEGATIVE (NEGATIVE) Urine WBC (Auto) NONE (0-5) /HPF Urine RBC (Auto) NONE (0-2) /HPF U Epithel Cells (Auto) NONE (FEW) /HPF Urine Bacteria (Auto) NONE (NEGATIVE) /HPF Urine Mucus (Auto) SLIGHT (NEGATIVE) /HPF Urine Culture Reflexed NO (NO) Urine Glucose NEGATIVE (NEGATIVE) mg/dL 04/15/20 04/15/20 04/15/20 Range/Units 10:56 10:56 10:42 WBC 6.3 (4.0-10.5) K/mm3 RBC 4.76 (4.1-5.6) M/mm3 Hgb 12.9 (12.5-18.0) gm/dl Hct 39.6 L (42-50) % MCV 83.2 (78-100) fl MCH 27.1 (26-32) pg MCHC 32.6 (32-36) g/dl RDW 14.7 H (11.5-14.0) % Plt Count 366 (150-450) K/mm3 MPV 8.7 (7.5-11.0) fl Gran % 61.0 (36.0-66.0) % Eos # (Auto) 0.15 (0-0.5) Absolute Lymphs (auto) 1.78 (1.0-4.6) Absolute Monos (auto) 0.50 (0.0-1.3) Lymphocytes % 28.2 (24.0-44.0) % Monocytes % 7.9 (0.0-12.0) % Eosinophils % 2.4 (0.00-5.0) % Basophils % 0.5 (0.0-0.4) % Absolute Granulocytes 3.85 (1.4-6.9) Basophils # 0.03 (0-0.4) Sodium 136 L (137-145) mmol/L Potassium 3.2 L (3.5-5.1) mmol/L Chloride 100 (98-107) mmol/L Carbon Dioxide 30 (22-30) mmol/L Anion Gap 10.0 (5-15) MEQ/L BUN 7 L (9-20) mg/dL Creatinine 0.88 (0.66-1.25) mg/dL Estimated GFR > 60.0 ML/MIN Glucose 127 H (74-106) mg/dL Lactic Acid 1.7 (0.4-2.0) Calcium 8.7 (8.4-10.2) mg/dL Total Bilirubin 0.50 (0.2-1.3) mg/dL AST 36 (17-59) U/L ALT 39 (0-50) U/L Alkaline Phosphatase 79 (38-126) U/L Troponin I (0.000-0.034) ng/mL Serum Total Protein 7.6 (6.3-8.2) g/dL Albumin 4.2 (3.5-5.0) g/dL Urine Color (YELLOW) Urine Appearance (CLEAR) Urine pH (5-6) Ur Specific [place] (1.005-1.025) Urine Protein (Negative) Urine Ketones (NEGATIVE) Urine Blood (0-5) Mendoza/ul Urine Nitrite (NEGATIVE) Urine Bilirubin (NEGATIVE) Urine Urobilinogen (0-1) mg/dL Ur Leukocyte Esterase (NEGATIVE) Urine WBC (Auto) (0-5) /HPF Urine RBC (Auto) (0-2) /HPF U Epithel Cells (Auto) (FEW) /HPF Urine Bacteria (Auto) (NEGATIVE) /HPF Urine Mucus (Auto) (NEGATIVE) /HPF Urine Culture Reflexed (NO) Urine Glucose (NEGATIVE) mg/dL - Progress Progress: improved, re-examined Progress Note: 04/15/20 10:39 risk/benefit of CT head neck chest discussed and pt requests to proceed. 04/15/20 14:51 pt has resolved all but the headache is returning - no neuro findings, and will treat again. discussed that undetected pathology could still be evolving and the need for further w/u/ tx and pt chooses DC with outpt followup rather than further eval in ER or admit and has the capacity to make that choice. Counseled pt/family regarding: lab results, diagnosis, need for follow-up, rad results - Departure Departure Disposition: Home Clinical Impression: Concussion, Degenerative joint disease of cervical spine, lingular atelectasis, mild hypokalemia Condition: Good Critical Care Time: No Referrals: ATTILA KAPOOR [Primary Care Provider] - Instructions: Hypokalemia (DC), Concussion, Adult (DC), Closed Head Injury (DC), Atelectasis Additional Instructions: followup with your DrAna to recheck potassium and blood pressure and arthritis of the cervical spine. return meantime if any symptoms or concerns, pain or symptoms return.
[2020-04-15] MEDS ORDERED: MORPHINE SULFATE 4 MG INJ IV ONE ×2 (10:42→14:50)
[2020-04-15] MEDS ORDERED: Zofran 4 MG/2 ML VIAL IV ONE (10:42)
[2020-04-15] MEDS ORDERED: Sodium Chloride 0.9% 1000 ML 1,000 ML IV STA (10:42)
[2020-04-15] MEDS ORDERED: BENADRYL 50 MG/ML IV ONE (10:42)
[2020-04-15] MEDS ORDERED: Sodium Chloride 0.9% 1000 ML 1,000 ML ONE (10:55)
[2020-04-15] MEDS ORDERED: MORPHINE SULFATE 4 MG INJ ONE ×2 (10:55→14:52)
[2020-04-15] MEDS ORDERED: Zofran 4 MG/2 ML VIAL ONE (10:55)
[2020-04-15] MEDS ORDERED: BENADRYL 50 MG/ML ONE (10:55)
[2020-04-15 11:06] LABS: Absolute Neutrophil Ct (ANC) 3.85 (1.4-6.9); BASOPHIL % 0.5 % (0.0-0.4); Basophil (Absolute #) 0.03 (0-0.4); Eosinophil % 2.4 % (0.00-5.0); Eosinophil (Absolute #) 0.15 (0-0.5); Hematocrit 39.6 % (42-50); Hemoglobin 12.9 gm/dl (12.5-18.0); Lymphocyte (Absolute #) 1.78 (1.0-4.6); Lymphocytes % 28.2 % (24.0-44.0); Mean Cell Volume 83.2 fl (78-100); Mean Corpuscular Hemoglobin 27.1 pg (26-32); Mean Corpuscular Hgb Concent. 32.6 g/dl (32-36); Mean Platelet Volume 8.7 fl (7.5-11.0); Monocytes % 7.9 % (0.0-12.0); Platelet Count 366 K/mm3 (150-450); Red Blood Count 4.76 M/mm3 (4.1-5.6); Red Cell Distribution Width 14.7 % (11.5-14.0); White Blood Count 6.3 K/mm3 (4.0-10.5)
[2020-04-15 11:17] LABS: ALBUMIN 4.2 g/dL (3.5-5.0); ALKALINE PHOSPHATASE 79 U/L (38-126); BLOOD UREA NITROGEN 7 mg/dL (9-20); CHLORIDE 100 mmol/L (98-107); Calcium 8.7 mg/dL (8.4-10.2); Carbon Dioxide 30 mmol/L (22-30); Creatinine 1 0.88 mg/dL (0.66-1.25); EST GLOMERULAR FILTRATION RATE > 60.0 ML/MIN; Glucose 127 mg/dL (74-106); Potassium 3.2 mmol/L (3.5-5.1); SGOT/AST 36 U/L (17-59); SGPT/ALT 39 U/L (0-50); SODIUM 136 mmol/L (137-145); Total Protein 7.6 g/dL (6.3-8.2)
[2020-04-15 13:12] LABS: Appearance CLEAR (CLEAR); Bilirubin NEGATIVE (NEGATIVE); Blood NEGATIVE Ery/ul (0-5); Glucose NEGATIVE (NEGATIVE); Ketones NEGATIVE (NEGATIVE); Leukocyte Esterase NEGATIVE (NEGATIVE); Mucus SLIGHT /HPF (NEGATIVE); Nitrite NEGATIVE (NEGATIVE); Protein,Urine Dip NEGATIVE (Negative); Specific Gravity 1.004 (1.005-1.025); Urobilinogen NEGATIVE mg/dL (0-1)
[2020-04-15] MEDS ORDERED: TYLENOL EXTRA STRENGTH 500 MG PO STA (14:49)
[2020-04-15] MEDS ORDERED: TYLENOL EXTRA STRENGTH 500 MG ONE (14:52)
[2020-04-15] MEDS ORDERED: K-LYTE 25 MEQ PO ONE (15:55)
[2020-04-15] MEDS ORDERED: K-LYTE 25 MEQ ONE (15:57)
[2020-04-15 15:58] VITALS: PULSE 76; O2SAT 96
[2020-04-15 16:02] VITALS: BP 138/118
--- NOTE | 2020-04-15 18:49 | XRAY ---
Indication: Pain following fall. Seizure. Multiple contiguous axial images obtained through the head without contrast. Comparison: March 05, 2019. There is age-appropriate global atrophy with stable remote right basal ganglia lacunar infarct. No acute hemorrhage, abnormal extra-axial fluid collection, or mass effect. Fourth ventricle is midline without hydrocephalus. Barron-white matter differentiation preserved. Bony calvarium intact. Visualized paranasal sinuses and mastoid air cells are clear. Impression: Stable old right basal ganglia dillon infarct. No new or acute intracranial abnormalities. Comment: Preliminary interpretation was made by [facility]. No critical discrepancy.
--- NOTE | 2020-04-15 18:51 | XRAY ---
Indication: Pain following fall. Seizure. Multiple contiguous axial images obtained through the cervical spine. Sagittal and coronal reformatted images obtained. Comparison: March 05, 2019. Axial images negative for acute fracture, suspicious bony lesions, or spinal canal stenosis. Minimal C3-C7 degenerative endplate spurring. Sagittal and coronal reformatted images demonstrates lordotic straightening, positional versus paraspinal spasm. Minimal C4-C6 disc space narrowing. No acute compression fracture, subluxation, or jumped facet. Normal appearing craniocervical junction. Visualized noncontrasted soft tissues including lung apices are unremarkable. Impression: 1. Negative for fracture/subluxation. 2. Minimal C4-C7 degenerative changes. Comment: Preliminary interpretation was made by [facility]. No critical discrepancy.
--- NOTE | 2020-04-15 18:53 | XRAY ---
Indication: Pain following fall. Seizure. Multiple contiguous axial images obtained through the chest without contrast. Comparison: None. Lungs are inflated with minimal lingula fibrosis/scarring. No suspicious pulmonary mass, infiltrate, consolidation, effusion, or pneumothorax. Heart is not enlarged. Aorta is normal in course and caliber. No pathologic mediastinal lymphadenopathy. Fatty paraesophageal hiatal hernia. Bony thorax intact with incidental left 2 rib bone island. Limited upper abdomen demonstrates fatty liver. Impression: 1. No acute cardiopulmonary abnormality on this noncontrasted exam. 2. Incidental paraesophageal fatty hiatal hernia and fatty liver. Comment: Preliminary interpretation was made by [facility]. No critical discrepancy.
== END 2020-04-15 16:03 | disposition home or self-care (01) ==
LOC: ED 10:00
DX: S06.0X9A Concussion with loss of consciousness of unspecified duration, initial encounter (principal); M47.892 Other spondylosis, cervical region; J98.11 Atelectasis; E87.6 Hypokalemia; W19.XXXA Unspecified fall, initial encounter; Y93.9 Activity, unspecified; C15.9 Malignant neoplasm of esophagus, unspecified; C73 Malignant neoplasm of thyroid gland; G47.419 Narcolepsy without cataplexy; Z79.899 Other long term (current) drug therapy; J44.9 Chronic obstructive pulmonary disease, unspecified
CPT/HCPCS: 36000; 36415; 70450; 71250; 72125; 80053; 81001; 83605; 84484; 85025; 96360; 96374; 96375; 96376; 99284; J1200; J2270; J2405; A9270-GY

== ENCOUNTER 2020-04-19 14:09 | Emergency (ER) | payer MEDICARE ==
[2020-04-19] MEDS ORDERED: SUBLIMAZE 100 MCG/2 ML IV ONE (14:29)
[2020-04-19] MEDS ORDERED: Sodium Chloride 0.9% 1000 ML 1,000 ML IV STA (14:29)
[2020-04-19] MEDS ORDERED: Zofran 4 MG/2 ML VIAL IV ONE (14:31)
[2020-04-19] MEDS ORDERED: TORAdol 30 mg Injection IV ONE (14:32)
[2020-04-19 14:35] LABS: Absolute Neutrophil Ct (ANC) 5.85 (1.4-6.9); BASOPHIL % 0.4 % (0.0-0.4); Basophil (Absolute #) 0.04 (0-0.4); Eosinophil % 1.9 % (0.00-5.0); Eosinophil (Absolute #) 0.18 (0-0.5); Hematocrit 43.1 % (42-50); Lymphocyte (Absolute #) 2.76 (1.0-4.6); Lymphocytes % 28.8 % (24.0-44.0); Mean Cell Volume 82.4 fl (78-100); Mean Corpuscular Hemoglobin 26.8 pg (26-32); Mean Corpuscular Hgb Concent. 32.5 g/dl (32-36); Mean Platelet Volume 8.8 fl (7.5-11.0); Monocyte (Absolute #) 0.74 (0.0-1.3); Monocytes % 7.7 % (0.0-12.0); Neutrophil % 61.2 % (36.0-66.0); Platelet Count 467 K/mm3 (150-450); Red Blood Count 5.23 M/mm3 (4.1-5.6); Red Cell Distribution Width 14.7 % (11.5-14.0); White Blood Count 9.6 K/mm3 (4.0-10.5)
[2020-04-19] MEDS ORDERED: Zofran 4 MG/2 ML VIAL ONE (14:37)
[2020-04-19] MEDS ORDERED: SUBLIMAZE 100 MCG/2 ML ONE (14:37)
[2020-04-19] MEDS ORDERED: TORAdol 30 mg Injection ONE (14:37)
[2020-04-19] MEDS ORDERED: Sodium Chloride 0.9% 1000 ML 1,000 ML ONE (14:38)
[2020-04-19 14:51] LABS: ALBUMIN 4.6 g/dL (3.5-5.0); ALKALINE PHOSPHATASE 107 U/L (38-126); AMYLASE 92 U/L (30-110); ANION GAP 11.9 MEQ/L (5-15); BLOOD UREA NITROGEN 12 mg/dL (9-20); CHLORIDE 100 mmol/L (98-107); Carbon Dioxide 29 mmol/L (22-30); Creatinine 1 1.08 mg/dL (0.66-1.25); EST GLOMERULAR FILTRATION RATE > 60.0 ML/MIN; Glucose 90 mg/dL (74-106); LIPASE 189 U/L (23-300); NT PRO BNP 11.9 pg/mL (0-900); Potassium 3.3 mmol/L (3.5-5.1); SGOT/AST 42 U/L (17-59); SGPT/ALT 50 U/L (0-50); SODIUM 138 mmol/L (137-145); Total Protein 8.5 g/dL (6.3-8.2)
--- NOTE | 2020-04-19 15:29 | ERPHSYRPT ---
- History of Present Illness Time Seen by Provider: 04/19/20 14:10 Source: patient Exam Limitations: no limitations Patient Subjective Stated Complaint: "I feel on Kelly and hit my head and lost conciousness. I am still having pain in back of my head and left side abdo men and ribs. I have been vomiting a lot and I feel like the room is spending." Triage Nursing Assessment: Pt presents to ER with complaints of vomiting, vertigo, LUQ abd pain that radiates to left upper flank, posterior head pain. Pt admits to having a recent fall 5 days ago with LOC. Pt is alert and oriented x 3 at this time. Skin is pale, warm, and dry. Pt walks with weak gait. Admits to vomiting approx 3 times today and states "I can't keep anything down". Pt has nausea and diarrhea also. Complains of shortness of breath, respirations slightly labored and lung sounds are adventitious throughout. Has dry cough. Abd is soft and nondistended. Physician History: Patient is here for continued headache, nausea, vomiting. Patient states that he had a fall last week. He came into the emergency department on April 15. No other new or different injury since then. He had a negative head CT, CT C- spine, CT chest at that point time. He arrives for continued headache, concussion-like symptoms, chest pain. Location: chest pain Quality: sharp Radiation: into LUQ Severity: moderate Duration: 6 days Timing: after fall Modifying factors/associated signs and symptoms: home OTC medication, Tylenol Allergies/Adverse Reactions: Penicillins Allergy (Severe, Verified 04/19/20 14:19) Anaphylactic Reaction peanut Adverse Reaction (Intermediate, Verified 04/19/20 14:19) Nausea Home Medications: Levothyroxine Sodium 150 Mcg [Synthroid 150 Mcg] 175 mcg PO DAILY 03/05/19 [History] Albuterol Sulfate [Albuterol Sulfate Hfa] 1 inh PO UD 04/15/20 [History] Fluticasone/Umeclidin/Vilanter [Trelegy Ellipta 200-62.5-25] 1 each IH UD 04/15/20 [History] Lisinopril 20 mg [Zestril 20 MG] 20 mg PO DAILY 04/15/20 [History] Methylphenidate HCl 20 mg PO BID 04/15/20 [History] Hx Tetanus, Diphtheria Vaccination/Date Given: Yes Hx Influenza Vaccination/Date Given: Yes Hx Pneumococcal Vaccination/Date Given: Yes Immunizations Up to Date: Yes Travel Risk - International Travel Have you traveled outside of the country in past 3 weeks: No - Coronavirus Screening Are you exhibiting any of the following symptoms?: Yes Symptoms: Shortness of Breath, Vomiting/Diarrhea, Headaches/Body Aches/Fatigue Close contact with a COVID-19 positive Pt in past 14-21 Days: No - Review of Systems Constitutional: No Fever, No Chills Eyes: No Symptoms Ears, Nose, & Throat: No Symptoms Respiratory: No Cough, No Dyspnea Cardiac: Chest Pain, No Edema, No Syncope Abdominal/Gastrointestinal: No Abdominal Pain, No Nausea, No Vomiting, No Diarrhea Genitourinary Symptoms: No Dysuria Musculoskeletal: No Back Pain, No Neck Pain Skin: No Rash Neurological: Dizziness, Headache, No Focal Weakness, No Sensory Changes Psychological: No Symptoms Endocrine: No Symptoms All Other Systems: Reviewed and Negative - Past Medical History Pertinent Past Medical History: Yes Neurological History: TIA ENT History: No Pertinent History Cardiac History: No Pertinent History Respiratory History: COPD Endocrine Medical History: Thyroid Cancer Musculoskeletal History: No Pertinent History GI Medical History: No Pertinent History History: No Pertinent History Psycho-Social History: No Pertinent History Male Reproductive Disorders: No Pertinent History Other Medical History: THYROID CANCER WITH METS, esophagus cancer, ms, narcolepsy - Past Surgical History Past Surgical History: Yes Neuro Surgical History: No Pertinent History Cardiac: No Pertinent History Respiratory: No Pertinent History Gastrointestinal: No Pertinent History Genitourinary: No Pertinent History Musculoskeletal: No Pertinent History Male Surgical History: No Pertinent History Other Surgical History: THYROIDECTOMY, ESOPHAGUS SURGERY - Social History Smoking Status: Never smoker Exposure to second hand smoke: No Drug Use: none Patient Lives Alone: Yes - Nursing Vital Signs Nursing Vital Signs: Initial Vital Signs Temperature 98.1 F 04/19/20 14:12 Pulse Rate 113 H 04/19/20 14:12 Respiratory Rate 20 04/19/20 14:12 Blood Pressure 160/119 04/19/20 14:12 O2 Sat by Pulse Oximetry 99 04/19/20 14:12 Pain Scale Pain Intensity 10 - Physical Exam General Appearance: no apparent distress, alert Eye Exam: PERRL/EOMI, eyes nml inspection Ears, Nose, Throat Exam: normal ENT inspection, TMs normal, pharynx normal, moist mucous membranes Neck Exam: normal inspection, non-tender, supple, full range of motion Respiratory Exam: normal breath sounds, lungs clear, No respiratory distress Cardiovascular Exam: regular rate/rhythm, normal heart sounds, normal peripheral pulses Gastrointestinal/Abdomen Exam: soft, normal bowel sounds, No tenderness, No mass Back Exam: normal inspection, normal range of motion, No CVA tenderness, No vertebral tenderness Extremity Exam: normal inspection, normal range of motion, pelvis stable Neurologic Exam: alert, oriented x 3, cooperative, normal mood/affect, nml cerebellar function, nml station & gait, sensation nml, No motor deficits Skin Exam: normal color, warm, dry, No rash Lymphatic Exam: No adenopathy SpO2 Interpretation: normal SpO2: 99 Comments: 04/19/20 15:27 Motor: There is no pronator drift of out-stretched arms. Muscle bulk and tone are normal. Strength is full bilaterally. Reflexes: Reflexes are 2+ and symmetric at the biceps, triceps, knees, and ankles. Plantar responses are flexor. Sensory: Light touch sense are intact in bilateral upper and lower extremities. There is no sign of neglect. Coordination: Rapid alternating movements are intact. There is no dysmetria on [id number] and [id number]. There are no abnormal or extraneous movements. Romberg is absent. Gait/Stance: Posture is normal. Gait is steady with normal steps, base, arm swing, and turning. Heel and toe walking are normal. Tandem gait is normal. No trismus, able to fully extend neck, normal range of motion of neck without pain. Uvula is midline, no swelling of the mouth, noraml oropharynx. No exudate, no signs of meningitis, no floor of mouth swelling, no hot potato voice on exam. No buccal swelling, no gum bleeding, no signs of tooth abscess/infection. No obvious deformity, sensation intact, 2+ capillary refill, 2 point tactile discrimination intact. 5 out of 5 strength. Full range of motion without pain. Compartments are soft, nontender. Overlying skin shows no tenting, bruising, ecchymosis. - Course Nursing assessment & vital signs reviewed: Yes EKG Interpreted by Me: Sinus Rhythm Ordered Tests: Active Orders 24 hr Category Date Time Status Choir Member STAT Care 04/19/20 14:30 Active EKG-ER Only STAT Care 04/19/20 14:29 Active IV Insertion STAT Care 04/19/20 14:29 Active CHEST WITH CONTRAST [CT] Stat Exams 04/19/20 14:30 Completed AMYLASE Stat Lab 04/19/20 14:33 Completed CBC W DIFF Stat Lab 04/19/20 14:33 Completed CMP Stat Lab 04/19/20 14:33 Completed D-DIMER QUANTITATIVE Stat Lab 04/19/20 14:33 Completed LIPASE Stat Lab 04/19/20 14:33 Completed NT PRO BNP Stat Lab 04/19/20 14:33 Completed TROPONIN Q3H Lab 04/19/20 14:33 Completed TROPONIN Q3H Lab 04/19/20 17:30 Ordered TROPONIN Q3H Lab 04/19/20 20:30 Ordered TROPONIN Q3H Lab 04/19/20 23:30 Ordered TROPONIN Q3H Lab 04/20/20 02:30 Ordered UA W/RFX UR CULTURE Stat Lab 04/19/20 14:30 Ordered Medication Summary Discontinued Medications Generic Name Dose Route Start Last Admin Trade Name Freq PRN Reason Stop Dose Admin Fentanyl Citrate 50 mcg 04/19/20 14:29 04/19/20 14:46 Sublimaze 100 Mcg/2 Ml IV 04/19/20 14:30 50 mcg STAT ONE Administration Fentanyl Citrate Confirm 04/19/20 14:37 Sublimaze 100 Mcg/2 Ml Administered 04/19/20 14:38 Dose 100 mcg .ROUTE .STK-MED ONE Sodium Chloride 1,000 mls @ 999 mls/hr 04/19/20 14:29 04/19/20 14:41 Sodium Chloride 0.9% 1000 Ml IV 04/19/20 15:29 999 mls/hr .Q1H1M STA Administration Sodium Chloride Confirm 04/19/20 14:38 Sodium Chloride 0.9% 1000 Ml Administered 04/19/20 14:39 Dose 1,000 mls @ ud .ROUTE .STK-MED ONE Ketorolac Tromethamine 30 mg 04/19/20 14:32 04/19/20 14:45 Toradol 30 Mg Injection IV 04/19/20 14:33 30 mg STAT ONE Administration Ketorolac Tromethamine Confirm 04/19/20 14:37 Toradol 30 Mg Injection Administered 04/19/20 14:38 Dose 30 mg .ROUTE .STK-MED ONE Ondansetron HCl 8 mg 04/19/20 14:31 04/19/20 14:42 Zofran 4 Mg/2 Ml Vial IV 04/19/20 14:32 8 mg STAT ONE Administration Ondansetron HCl Confirm 04/19/20 14:37 Zofran 4 Mg/2 Ml Vial Administered 04/19/20 14:38 Dose 8 mg .ROUTE .STK-MED ONE Lab/Rad Data: Laboratory Result Diagrams 04/19/20 14:33 04/19/20 14:33 Laboratory Results 04/19/20 04/19/20 04/19/20 Range/Units 14:33 14:33 14:33 WBC (4.0-10.5) K/mm3 RBC (4.1-5.6) M/mm3 Hgb (12.5-18.0) gm/dl Hct (42-50) % MCV (78-100) fl MCH (26-32) pg MCHC (32-36) g/dl RDW (11.5-14.0) % Plt Count (150-450) K/mm3 MPV (7.5-11.0) fl Gran % (36.0-66.0) % Eos # (Auto) (0-0.5) Absolute Lymphs (auto) (1.0-4.6) Absolute Monos (auto) (0.0-1.3) Lymphocytes % (24.0-44.0) % Monocytes % (0.0-12.0) % Eosinophils % (0.00-5.0) % Basophils % (0.0-0.4) % Absolute Granulocytes (1.4-6.9) Basophils # (0-0.4) D-Dimer [id number] H* (215-500) ng/mL Sodium 138 (137-145) mmol/L Potassium 3.3 L (3.5-5.1) mmol/L Chloride 100 (98-107) mmol/L Carbon Dioxide 29 (22-30) mmol/L Anion Gap 11.9 (5-15) MEQ/L BUN 12 (9-20) mg/dL Creatinine 1.08 (0.66-1.25) mg/dL Estimated GFR > 60.0 ML/MIN Glucose 90 (74-106) mg/dL Calcium 10.0 (8.4-10.2) mg/dL Total Bilirubin 0.40 (0.2-1.3) mg/dL AST 42 (17-59) U/L ALT 50 (0-50) U/L Alkaline Phosphatase 107 (38-126) U/L Troponin I < 0.012 (0.000-0.034) ng/mL NT-Pro-B Natriuret Pep 11.9 (0-900) pg/mL Serum Total Protein 8.5 H (6.3-8.2) g/dL Albumin 4.6 (3.5-5.0) g/dL Amylase 92 (30-110) U/L Lipase 189 (23-300) U/L 04/19/20 Range/Units 14:33 WBC 9.6 (4.0-10.5) K/mm3 RBC 5.23 (4.1-5.6) M/mm3 Hgb 14.0 (12.5-18.0) gm/dl Hct 43.1 (42-50) % MCV 82.4 (78-100) fl MCH 26.8 (26-32) pg MCHC 32.5 (32-36) g/dl RDW 14.7 H (11.5-14.0) % Plt Count 467 H (150-450) K/mm3 MPV 8.8 (7.5-11.0) fl Gran % 61.2 (36.0-66.0) % Eos # (Auto) 0.18 (0-0.5) Absolute Lymphs (auto) 2.76 (1.0-4.6) Absolute Monos (auto) 0.74 (0.0-1.3) Lymphocytes % 28.8 (24.0-44.0) % Monocytes % 7.7 (0.0-12.0) % Eosinophils % 1.9 (0.00-5.0) % Basophils % 0.4 (0.0-0.4) % Absolute Granulocytes 5.85 (1.4-6.9) Basophils # 0.04 (0-0.4) D-Dimer (215-500) ng/mL Sodium (137-145) mmol/L Potassium (3.5-5.1) mmol/L Chloride (98-107) mmol/L Carbon Dioxide (22-30) mmol/L Anion Gap (5-15) MEQ/L BUN (9-20) mg/dL Creatinine (0.66-1.25) mg/dL Estimated GFR ML/MIN Glucose (74-106) mg/dL Calcium (8.4-10.2) mg/dL Total Bilirubin (0.2-1.3) mg/dL AST (17-59) U/L ALT (0-50) U/L Alkaline Phosphatase (38-126) U/L Troponin I (0.000-0.034) ng/mL NT-Pro-B Natriuret Pep (0-900) pg/mL Serum Total Protein (6.3-8.2) g/dL Albumin (3.5-5.0) g/dL Amylase (30-110) U/L Lipase (23-300) U/L - Progress Progress: improved Progress Note: 04/19/20 15:27 Differential diagnosis includes pulmonary embolism, pneumothorax, postconcussive symptoms, STEMI. I had my usual head injury conversation with patient and family. I discussed return precautions, follow-up, and when to see a primary care provider. I had an in depth conversation on expectations, prognosis, and strict return precautions. No return to sports or strenuous exertion until follow up and clearance. We will obtain a CT scan of the chest, labs, EKG, pain control and nausea control. 04/19/20 15:39 Elevated D-dimer. However CT scan shows no pulmonary embolism, no pneumothorax, no fractures. Overall patient feels improved with pain medication and Zofran. He most likely is having postconcussive headache and nausea and vomiting. CT scan last week demonstrated no head bleed. Repeat neurological exam stayed stable. Plan of care was discussed with patient and all questions answered. The patient is agreeable to be discharged home and both verbal and printed discharge instructions were provided.The patient agreed to seek outpatient follow up as discussed. The patient was given strict instructions to return to the emergency department for worsening symptoms or any other emergent concerns. The patient verbalized understanding. Discussed with : Jeff Counseled pt/family regarding: lab results, diagnosis, need for follow-up, rad results - Departure Departure Disposition: Home Clinical Impression: Concussion, Atypical chest pain Condition: Stable Critical Care Time: No Referrals: ATTILA KAPOOR [Primary Care Provider] - Prescriptions: Ondansetron ODT 4 MG [Zofran Odt 4 mg] 4 mg PO Q6H PRN PRN #10 tab.rapdis PRN Reason: Vomiting
--- NOTE | 2020-04-19 15:30 | XRAY ---
Indication: Headache, nausea, vomiting, and elevated d-dimer. Multiple contiguous axial images obtained through the chest Comparison: CT chest without contrast April 15, 2020. There is satisfactory opacification of the pulmonary arteries to include the lobar and segmental branches. Minimal respiration artifact limits evaluation of the more distal segmental branches. No central pulmonary embolus. Heart is not enlarged. Aorta remains normal course and caliber. No pathologic mediastinal/hilar lymphadenopathy. There is now small paraesophageal hiatal hernia with new fluid in the esophagus presumed from gastroesophageal reflux. Lungs are inflated and remain clear. Bony thorax intact. Limited upper abdomen again demonstrates fatty liver. Impression: 1. Pulmonary embolus evaluation limited by respiration artifact. No central pulmonary embolus. 2. Small paraesophageal hiatal hernia. Fluid in distal esophagus presumed from gastroesophageal reflux. 3. No new/acute cardiopulmonary abnormalities. 4. Again incidental fatty liver.
[2020-04-19 16:18] VITALS: BP 150/78; PULSE 90; O2SAT 98
== END 2020-04-19 16:19 | disposition home or self-care (01) ==
LOC: ED 14:09
DX: S06.0X9A Concussion with loss of consciousness of unspecified duration, initial encounter (principal); W01.0XXA Fall on same level from slipping, tripping and stumbling without subsequent striking against object, initial encounter; R07.89 Other chest pain; R11.2 Nausea with vomiting, unspecified; Z79.899 Other long term (current) drug therapy
CPT/HCPCS: 36000; 36415; 71260; 80053; 82150; 83690; 83880; 84484; 85025; 85379; 93005; 93041; 96360; 96374; 96375; 99284; J1885; J2405; J3010

== ENCOUNTER 2020-07-23 11:26 | Emergency (ER) | payer MEDICARE ==
[2020-07-23] MEDS ORDERED: Sodium Chloride 0.9% 1000 ML 1,000 ML IV STA (11:48)
[2020-07-23] MEDS ORDERED: Zofran 4 MG/2 ML VIAL IV ONE ×2 (11:48→13:17)
[2020-07-23] MEDS ORDERED: Zofran 4 MG/2 ML VIAL ONE (11:51)
[2020-07-23] MEDS ORDERED: Sodium Chloride 0.9% 1000 ML 1,000 ML ONE (11:51)
[2020-07-23 12:21] LABS: Hematocrit 37.3 % (42-50); Hemoglobin 12.4 gm/dl (12.5-18.0); Mean Corpuscular Hemoglobin 29.2 pg (26-32); Mean Corpuscular Hgb Concent. 33.2 g/dl (32-36); Mean Platelet Volume 8.6 fl (7.5-11.0); Platelet Count 396 K/mm3 (150-450); Red Blood Count 4.24 M/mm3 (4.1-5.6); Red Cell Distribution Width 16.1 % (11.5-14.0); White Blood Count 6.7 K/mm3 (4.0-10.5)
--- NOTE | 2020-07-23 12:28 | ERPHSYRPT ---
- History of Present Illness Time Seen by Provider: 07/23/20 11:40 Historian: patient Exam Limitations: no limitations Patient Subjective Stated Complaint: Pt states that he has felt ill for the past 2.5 weeks ago after he had a surgery to remove 17 spots on his throat that was cancerous, pt has esophageal cancer, pt is nauseous after everything he eats or drinks Triage Nursing Assessment: Pt brought self to the ER, hypertensive, pain w/palpatation to the umbilicus region, pt still has appendix, rates pain as 6/10, pulses normal, denies issues with bowels, doesn't appear to be in any distress Physician History: 54 years old male with a history of esophageal cancer with recent multiple biopsies and endoscopic lesion burning done 2 and half weeks ago presented in the ER with chief complaint of epigastric pain dull cramping which is aggravated with eating and associated with nausea and occasional vomiting. Denies any fever or chills. Patient reports decreased oral intake because of nausea and feels fatigued and tired. Timing/Duration: week(s) (2.5), sudden Activities at Onset: rest Quality: cramping, dullness Abdominal Pain Onset Location: epigastric, periumbilical Severity of Pain-Max: moderate Severity of Pain-Current: moderate Modifying Factors: Worsens With: eating Associated Symptoms: vomiting, No chest pain, No diarrhea, No fever/chills, No rash, No shortness of breath, No testicular pain Allergies/Adverse Reactions: Penicillins Allergy (Severe, Verified 07/23/20 11:38) Anaphylactic Reaction peanut Adverse Reaction (Intermediate, Verified 07/23/20 11:38) Nausea Home Medications: Levothyroxine Sodium 150 Mcg [Synthroid 150 Mcg] 175 mcg PO DAILY 03/05/19 [History] Albuterol Sulfate [Albuterol Sulfate Hfa] 1 inh PO UD 04/15/20 [History] Fluticasone/Umeclidin/Vilanter [Trelegy Ellipta 200-62.5-25] 1 each IH UD 04/15/20 [History] Lisinopril 20 mg [Zestril 20 MG] 20 mg PO DAILY 04/15/20 [History] Methylphenidate HCl 20 mg PO BID 04/15/20 [History] Hx Tetanus, Diphtheria Vaccination/Date Given: Yes Hx Influenza Vaccination/Date Given: Yes Hx Pneumococcal Vaccination/Date Given: Yes Travel Risk - International Travel Have you traveled outside of the country in past 3 weeks: No - Coronavirus Screening Are you exhibiting any of the following symptoms?: No Close contact with a COVID-19 positive Pt in past 14-21 Days: No - Vaccine Status Have you recieved a Covid-19 vaccination: No - Review of Systems Constitutional: No Symptoms Eyes: No Symptoms Ears, Nose, & Throat: No Symptoms Respiratory: No Symptoms Cardiac: No Symptoms Abdominal/Gastrointestinal: Abdominal Pain, Nausea, Vomiting Genitourinary Symptoms: No Symptoms Musculoskeletal: No Symptoms Skin: No Symptoms Neurological: No Symptoms Psychological: No Symptoms Endocrine: No Symptoms Hematologic/Lymphatic: No Symptoms Immunological/Allergic: No Symptoms - Past Medical History Pertinent Past Medical History: Yes Neurological History: TIA ENT History: No Pertinent History Cardiac History: No Pertinent History Respiratory History: COPD Endocrine Medical History: Thyroid Cancer Musculoskeletal History: No Pertinent History GI Medical History: No Pertinent History History: No Pertinent History Psycho-Social History: No Pertinent History Male Reproductive Disorders: No Pertinent History Other Medical History: THYROID CANCER WITH METS, esophagus cancer, ms, narcolepsy - Past Surgical History Past Surgical History: Yes Neuro Surgical History: No Pertinent History Cardiac: No Pertinent History Respiratory: No Pertinent History Gastrointestinal: No Pertinent History Genitourinary: No Pertinent History Musculoskeletal: No Pertinent History Male Surgical History: No Pertinent History Other Surgical History: THYROIDECTOMY, ESOPHAGUS SURGERY - Social History Smoking Status: Never smoker Exposure to second hand smoke: No Drug Use: none Patient Lives Alone: Yes - Nursing Vital Signs Nursing Vital Signs: Initial Vital Signs Temperature 98.4 F 07/23/20 11:29 Pulse Rate 92 H 07/23/20 11:29 Blood Pressure 163/111 07/23/20 11:29 O2 Sat by Pulse Oximetry 98 07/23/20 11:29 Pain Scale Pain Intensity 6 - Physical Exam General Appearance: no apparent distress, alert, anxiety Ears, Nose, Throat Exam: normal ENT inspection, pharyngeal erythema Neck Exam: normal inspection, supple, full range of motion Respiratory Exam: normal breath sounds, lungs clear Cardiovascular Exam: regular rate/rhythm, normal heart sounds Gastrointestinal/Abdomen Exam: soft, normal bowel sounds, tenderness (Epigastric area/periumbilical area), No guarding, No rebound Back Exam: normal inspection, normal range of motion Extremity Exam: normal inspection, normal range of motion Neurologic Exam: alert, oriented x 3, cooperative Skin Exam: normal color SpO2 Interpretation: normal SpO2: 98 O2 Delivery: Room Air Ordered Tests: Active Orders 24 hr Category Date Time Status EKG-ER Only STAT Care 07/23/20 11:48 Active IV Insertion STAT Care 07/23/20 11:48 Active NPO (ED) STAT Care 07/23/20 11:48 Active ABDOMEN AND PELVIS W CONTRAST [CT] Stat Exams 07/23/20 11:49 Taken CBC W DIFF Stat Lab 07/23/20 12:10 Completed CMP Stat Lab 07/23/20 12:10 Completed LIPASE Stat Lab 07/23/20 12:10 Completed Manual Differential NC Stat Lab 07/23/20 12:10 Completed TROPONIN Q3H Lab 07/23/20 12:10 Completed TROPONIN Q3H Lab 07/23/20 15:00 Ordered TROPONIN Q3H Lab 07/23/20 18:00 Ordered TROPONIN Q3H Lab 07/23/20 21:00 Ordered TROPONIN Q3H Lab 07/24/20 00:00 Ordered UA W/RFX UR CULTURE Stat Lab 07/23/20 11:49 Ordered Medication Summary Discontinued Medications Generic Name Dose Route Start Last Admin Trade Name Freq PRN Reason Stop Dose Admin Sodium Chloride 1,000 mls @ 500 mls/hr 07/23/20 11:48 07/23/20 11:52 Sodium Chloride 0.9% 1000 Ml IV 07/23/20 13:47 500 mls/hr .Q2H STA Administration Sodium Chloride Confirm 07/23/20 11:51 Sodium Chloride 0.9% 1000 Ml Administered 07/23/20 11:52 Dose 1,000 mls @ ud .ROUTE .STK-MED ONE Metoclopramide HCl 10 mg 07/23/20 13:19 07/23/20 13:20 Reglan 10 Mg/2 Ml IV 07/23/20 13:20 10 mg STAT ONE Administration Metoclopramide HCl Confirm 07/23/20 13:17 Reglan 10 Mg/2 Ml Administered 07/23/20 13:18 Dose 10 mg .ROUTE .STK-MED ONE Ondansetron HCl 4 mg 07/23/20 11:48 07/23/20 11:52 Zofran 4 Mg/2 Ml Vial IV 07/23/20 11:49 4 mg STAT ONE Administration Ondansetron HCl Confirm 07/23/20 11:51 Zofran 4 Mg/2 Ml Vial Administered 07/23/20 11:52 Dose 4 mg .ROUTE .STK-MED ONE Ondansetron HCl 4 mg 07/23/20 13:17 07/23/20 13:18 Zofran 4 Mg/2 Ml Vial IV 07/23/20 13:18 Not Given STAT ONE Lab/Rad Data: Laboratory Result Diagrams 07/23/20 12:10 07/23/20 12:10 Laboratory Results 07/23/20 07/23/20 07/23/20 Range/Units 12:10 12:10 12:10 WBC 6.7 (4.0-10.5) K/mm3 RBC 4.24 (4.1-5.6) M/mm3 Hgb 12.4 L (12.5-18.0) gm/dl Hct 37.3 L (42-50) % MCV 88.0 (78-100) fl MCH 29.2 (26-32) pg MCHC 33.2 (32-36) g/dl RDW 16.1 H (11.5-14.0) % Plt Count 396 (150-450) K/mm3 MPV 8.6 (7.5-11.0) fl Segmented Neutrophils 64 (36.-66.) % Band Neutrophils 2 (0.0-2.0) % Lymphocytes (Manual) 27 (24-44) % Monocytes (Manual) 4 (0.0-12.0) % Eosinophils (Manual) 3 (0.00-3.0) % Platelet Estimate NORMAL (NORMAL) RBC Morphology NORMAL Sodium 139 (137-145) mmol/L Potassium 3.2 L (3.5-5.1) mmol/L Chloride 99 (98-107) mmol/L Carbon Dioxide 29 (22-30) mmol/L Anion Gap 14.2 (5-15) MEQ/L BUN 13 (9-20) mg/dL Creatinine 1.04 (0.66-1.25) mg/dL Estimated GFR > 60.0 ML/MIN Glucose 108 H (74-106) mg/dL Calcium 9.8 (8.4-10.2) mg/dL Total Bilirubin 0.40 (0.2-1.3) mg/dL AST 82 H (17-59) U/L ALT 106 H (0-50) U/L Alkaline Phosphatase 87 (38-126) U/L Troponin I < 0.012 (0.000-0.034) ng/mL Serum Total Protein 7.9 (6.3-8.2) g/dL Albumin 4.5 (3.5-5.0) g/dL Lipase 191 (23-300) U/L - Progress Progress: improved, re-examined Progress Note: 07/23/20 13:48 54-year-old is evaluated for upper abdominal pain with nausea and occasional vomiting after recent procedure done for esophageal cancer. Patient is given GI cocktail, on reevaluation feeling better he is also given Zofran and Reglan and nausea is improved. Patient pain is in epigastric area. Work-up showed normal white count, lipase and grossly unremarkable chemistries showed some elevated liver enzymes/transaminases but as no acute CT findings regarding gallbladder.. I have obtained CT abdomen pelvis with contrast otherwise is negative for any acute finding but does have hiatal hernia. His symptoms could be secondary to gastritis and I would start him on Protonix along with Reglan to go home and outpatient follow-up with his GI as recommended. Discussed signs symptoms of worsening needing return to ER which he seems understanding. Patient has mild hypokalemia, offered replacement here but he does not want anything and reports that he will eat bananas and other potassium containing food at home. 07/23/20 13:54 Counseled pt/family regarding: lab results, diagnosis, need for follow-up, rad results - Departure Departure Disposition: Home Clinical Impression: Upper abdominal pain, Hypokalemia Nausea & vomiting Qualifiers: Vomiting type: unspecified Vomiting Intractability: non-intractable Qualified Code(s): R11.2 - Nausea with vomiting, unspecified Condition: Stable Critical Care Time: No Referrals: ATTILA KAPOOR [Primary Care Provider] - (1-2 days for reevaluation.) Instructions: Nausea and Vomiting, Adult (DC), Gastritis (DC), Hypokalemia (DC) Additional Instructions: Take Tylenol as needed for pain. Do not take ibuprofen Aleve or diclofenac or any other NSAIDs. Continue with Protonix. Take Reglan as needed for nausea. Follow-up with primary care and gastroenterology for reevaluation. Return to ER for worsening. You may need an ultrasound of right upper quadrant for gallbladder. Prescriptions: Metoclopramide HCl 10 mg [Reglan 10 MG] 10 mg PO Q8HPRN PRN 5 Days #12 tablet PRN Reason: Vomiting PANTOPRAZOLE 40 mg Tablet [Protonix 40MG Tablet] 40 mg PO QAM 30 Days #30 tab
[2020-07-23 12:39] LABS: ALBUMIN 4.5 g/dL (3.5-5.0); ALKALINE PHOSPHATASE 87 U/L (38-126); ANION GAP 14.2 MEQ/L (5-15); BLOOD UREA NITROGEN 13 mg/dL (9-20); CHLORIDE 99 mmol/L (98-107); Calcium 9.8 mg/dL (8.4-10.2); Carbon Dioxide 29 mmol/L (22-30); Creatinine 1 1.04 mg/dL (0.66-1.25); EST GLOMERULAR FILTRATION RATE > 60.0 ML/MIN; Glucose 108 mg/dL (74-106); LIPASE 191 U/L (23-300); Potassium 3.2 mmol/L (3.5-5.1); SGOT/AST 82 U/L (17-59); SGPT/ALT 106 U/L (0-50); SODIUM 139 mmol/L (137-145); Total Protein 7.9 g/dL (6.3-8.2)
[2020-07-23 13:01] LABS: BAND 2 % (0.0-2.0); Eosinophil 3 % (0.00-3.0); Lymphocytes 27 % (24-44); Monocyte 4 % (0.0-12.0); Neutrophils 64 % (36.-66.); Platelet Estimate NORMAL (NORMAL); Total Cells Counted 100
[2020-07-23 13:16] VITALS: PULSE 80
[2020-07-23] MEDS ORDERED: Reglan 10 MG/2 ML ONE (13:17)
[2020-07-23] MEDS ORDERED: Reglan 10 MG/2 ML IV ONE (13:19)
[2020-07-23 13:56] VITALS: BP 176/100; O2SAT 97
--- NOTE | 2020-07-23 19:27 | XRAY ---
Indication: Abdomen pain. Nausea. Esophageal cancer. Multiple contiguous axial images obtained through the abdomen and pelvis using 80 cc Isovue-370 contrast. Comparison: March 05, 2019. Lung bases again demonstrates minimal fibrosis/scarring. No infiltrate or effusion. Heart is not enlarged. Stable moderate-sized hiatal hernia with partial intrathoracic stomach. Noncontrasted stomach and bowel loops remain nonobstructed again with normal appendix. Again minimal descending and sigmoid diverticulosis. No free fluid/air. Stable 24 cm fatty hepatomegaly. Gallbladder contracted without gallstones. Remaining liver, gallbladder, pancreas, spleen, adrenal glands, kidneys, ureters, and bladder are unremarkable. There remains minimal aortoiliac calcifications. No AAA or pathologic retroperitoneal lymphadenopathy. Osseous structures intact again with mild degenerative changes throughout the lumbar spine. Impression: 1. Stable hiatal hernia, fatty liver, colonic diverticulosis, and chronic bony findings. 2. Remaining CT abdomen/pelvis with contrast exam is negative. Comment: Preliminary interpretation was made by [facility]. No critical discrepancy.
== END 2020-07-23 14:00 | disposition home or self-care (01) ==
LOC: ED 11:26
DX: R10.10 Upper abdominal pain, unspecified (principal); E87.6 Hypokalemia; R11.2 Nausea with vomiting, unspecified
CPT/HCPCS: 36000; 36415; 74177; 80053; 83690; 84484; 85025; 93005; 96360; 96361; 96374; 96375; 99284; J2405

== ENCOUNTER 2022-06-15 06:53 | Emergency (ER) | payer MEDICARE ==
--- NOTE | 2022-06-15 06:59 | ERPHSYRPT ---
- History of Present Illness Time Seen by Provider: 06/15/22 06:58 Source: patient, EMS, old records Exam Limitations: no limitations Physician History: This is a 56-year-old obese white male patient who was brought into the emergency department by the paramedics because of 4 hours of dizziness. He also had a systolic blood pressure in the 190s. Patient has a history of esophageal cancer as well as thyroid cancer with metastatic disease. Patient denies chest pain. He denies shortness of breath. He denies abdominal pain. Patient has a history of hypothyroidism, gastroesophageal reflux disease, TIAs, COPD, multiple sclerosis and narcolepsy. Patient states he did not take his medication this morning. Timing/Duration: today Severity: mild Character of Deficits: none Deficits: no difficulties Baseline/Normal Cognition: alert oriented x 3 Current Cognition: alert oriented x 3 Baseline Gait: walks w/o assistance Associated Symptoms: weakness, other (Dizziness), No headache Allergies/Adverse Reactions: Penicillins Allergy (Severe, Verified 06/15/22 06:58) Anaphylactic Reaction Home Medications: Levothyroxine Sodium 150 Mcg [Synthroid 150 Mcg] 175 mcg PO DAILY 03/05/19 [History] Albuterol Sulfate [Albuterol Sulfate Hfa] 1 inh PO UD 04/15/20 [History] Lisinopril 20 mg [Zestril 20 MG] 20 mg PO DAILY 04/15/20 [History] Methylphenidate HCl 20 mg PO BID 04/15/20 [History] Amlodipine Besylate 5 mg [Norvasc 5 mg] 5 mg PO DAILY 06/15/22 [History] Labetalol HCl 100 mg [Trandate 100 MG] 200 mg PO DAILY 06/15/22 [History] Metoprolol Tartrate 25 mg [Lopressor 25MG Tab] 25 mg PO BID 06/15/22 [History] Spironolactone 25 mg [Aldactone 25 MG] 25 mg PO DAILY 06/15/22 [History] Hx Tetanus, Diphtheria Vaccination/Date Given: Yes Hx Influenza Vaccination/Date Given: Yes Hx Pneumococcal Vaccination/Date Given: Yes Travel Risk - International Travel Have you traveled outside of the country in past 3 weeks: No - Coronavirus Screening Are you exhibiting any of the following symptoms?: No Close contact with a COVID-19 positive Pt in past 14-21 Days: No - Vaccine Status Have you recieved a Covid-19 vaccination: No - Review of Systems Constitutional: Weakness Eyes: No Symptoms Ears, Nose, & Throat: No Symptoms Respiratory: No Symptoms Cardiac: No Symptoms Abdominal/Gastrointestinal: No Symptoms Genitourinary Symptoms: No Symptoms Musculoskeletal: No Symptoms Skin: No Symptoms Neurological: Dizziness Psychological: No Symptoms Endocrine: No Symptoms Hematologic/Lymphatic: No Symptoms Immunological/Allergic: No Symptoms All Other Systems: Reviewed and Negative - Past Medical History Pertinent Past Medical History: Yes Neurological History: TIA ENT History: No Pertinent History Cardiac History: No Pertinent History Respiratory History: COPD Endocrine Medical History: Thyroid Cancer Musculoskeletal History: No Pertinent History GI Medical History: No Pertinent History History: No Pertinent History Psycho-Social History: No Pertinent History Male Reproductive Disorders: No Pertinent History Other Medical History: THYROID CANCER WITH METS, esophagus cancer, ms, narcolepsy - Past Surgical History Past Surgical History: Yes Neuro Surgical History: No Pertinent History Cardiac: No Pertinent History Respiratory: No Pertinent History Gastrointestinal: No Pertinent History Genitourinary: No Pertinent History Musculoskeletal: No Pertinent History Male Surgical History: No Pertinent History Other Surgical History: THYROIDECTOMY, ESOPHAGUS SURGERY - Social History Smoking Status: Never smoker Exposure to second hand smoke: No Drug Use: none Patient Lives Alone: Yes - Nursing Vital Signs Nursing Vital Signs: Initial Vital Signs Temperature 97 F 06/15/22 06:53 Pulse Rate 73 06/15/22 06:53 Respiratory Rate 18 06/15/22 06:53 Blood Pressure 187/94 06/15/22 06:53 O2 Sat by Pulse Oximetry 99 06/15/22 06:53 Pain Scale Pain Intensity 0 - [place]ner Coma Scale Best Eye Response (Noris): (4) open spontaneously Best Verbal Response (Noris): (5) oriented Best Motor Response (Noris): (6) obeys commands Noris Total: 15 - Physical Exam General Appearance: no apparent distress, alert, anxiety, obese Eye Exam: bilateral eye: normal inspection, PERRL, EOMI Ears, Nose, Throat Exam: normal ENT inspection, moist mucous membranes Neck Exam: normal inspection, non-tender, supple, full range of motion Respiratory: normal breath sounds, lungs clear, airway intact, No chest tenderness, No respiratory distress Cardiovascular: regular rate/rhythm, normal heart sounds, normal peripheral pulses Gastrointestinal: soft, normal bowel sounds, No tenderness Rectal Exam: not done Back Exam: normal inspection, normal range of motion, No CVA tenderness, No vertebral tenderness Extremity Exam: normal inspection, normal range of motion, pelvis stable Mental Status: alert, oriented x 3, cooperative dramatic critic Exam: normal hearing, normal speech, PERRL, tongue midline Coordination/Gait: normal finger to nose Skin Exam: normal color, warm, dry SpO2 Interpretation: normal O2 Delivery: Room Air - Course Nursing assessment & vital signs reviewed: Yes EKG Interpreted by Me: RATE (64), Sinus Rhythm, NORMAL AXIS, NORMAL INTERVALS, NORMAL QRS, NORMAL ST-T, Other (No acute ischemic changes on today's twelve-lead EKG this is interpreted by me.) Ordered Tests: Active Orders 24 hr Category Date Time Status EKG-ER Only STAT Care 06/15/22 07:01 Active IV Insertion STAT Care 06/15/22 06:59 Active HEAD WITHOUT CONTRAST [CT] Stat Exams 06/15/22 07:00 Completed CBC W DIFF Stat Lab 06/15/22 07:30 Completed CMP Stat Lab 06/15/22 07:30 Completed ETHYL ALCOHOL Stat Lab 06/15/22 07:30 Completed MAGNESIUM Stat Lab 06/15/22 07:30 Completed T4 (Thyroxine) Stat Lab 06/15/22 07:30 Completed TSH, 3RD Generation Stat Lab 06/15/22 07:30 Completed UA W/RFX UR CULTURE Stat Lab 06/15/22 08:27 Completed Urine Triage Profile Stat Lab 06/15/22 08:27 Completed Medication Summary Generic Name Dose Route Start Last Admin Trade Name Freq PRN Reason Stop Dose Admin Sodium Chloride 1,000 mls @ 100 mls/hr 06/15/22 07:00 06/15/22 07:34 Sodium Chloride 0.9% 1000 Ml IV 07/15/22 06:59 100 mls/hr .Q10H TRUDI Administration Discontinued Medications Generic Name Dose Route Start Last Admin Trade Name Freq PRN Reason Stop Dose Admin Enalaprilat 1.25 mg 06/15/22 07:53 06/15/22 08:16 Enalaprilat 2.5 Mg Injection IV 06/15/22 07:54 1.25 mg STAT ONE Administration Enalaprilat Confirm 06/15/22 08:10 Enalaprilat 2.5 Mg Injection Administered 06/15/22 08:11 Dose 2.5 mg IV .[facility] ONE Lab/Rad Data: Laboratory Result Diagrams 06/15/22 07:30 06/15/22 07:30 Laboratory Results 06/15/22 06/15/22 06/15/22 Range/Units 08:27 08:27 07:30 WBC (4.0-10.5) x10^3/uL RBC (4.1-5.6) x10^6/uL Hgb (12.5-18.0) g/dL Hct (42-50) % MCV (78-100) fL MCH (26-32) pg MCHC (32-36) g/dL RDW (11.5-14.0) % Plt Count (150-450) x10^3/uL MPV (7.5-11.0) fL Gran % (36.0-66.0) % Immature Gran % (Auto) (0.00-0.4) % Nucleat RBC Rel Count (0.00-0.1) % Eos # (Auto) (0-0.5) x10^3/uL Immature Gran # (Auto) (0.00-0.03) x10^3u/L Absolute Lymphs (auto) (1.0-4.6) x10^3/uL Absolute Monos (auto) (0.0-1.3) x10^3/uL Absolute Nucleated RBC (0.00-0.01) x10^3u/L Lymphocytes % (24.0-44.0) % Monocytes % (0.0-12.0) % Eosinophils % (0.00-5.0) % Basophils % (0.0-0.4) % Absolute Granulocytes (1.4-6.9) x10^3/uL Basophils # (0-0.4) x10^3/uL Sodium 141 (137-145) mmol/L Potassium 3.4 L (3.5-5.1) mmol/L Chloride 100 (98-107) mmol/L Carbon Dioxide 31 H (22-30) mmol/L Anion Gap 13.4 (5-15) MEQ/L BUN 11 (9-20) mg/dL Creatinine 0.86 (0.66-1.25) mg/dL Estimated GFR > 60.0 ML/MIN Glucose 137 H (74-106) mg/dL Calcium 8.5 (8.4-10.2) mg/dL Magnesium 2.0 (1.6-2.3) mg/dL Total Bilirubin 0.70 (0.2-1.3) mg/dL AST 32 (17-59) U/L ALT 38 (0-50) U/L Alkaline Phosphatase 93 (38-126) U/L Serum Total Protein 7.8 (6.3-8.2) g/dL Albumin 4.5 (3.5-5.0) g/dL Thyroxine (T4) 9.03 (5.53-10.96) ug/dL TSH 3rd Generation 2.500 (0.47-4.68) mIU/L Urine Color Yellow (Yellow) Urine Appearance Cloudy A (Clear) Urine pH 8.0 (4.6-8.0) Ur Specific [place] 1.010 (1.005-1.030) Urine Protein Negative (Negative) Urine Glucose (UA) Negative (Negative) mg/dL Urine Ketones Negative (Negative) Urine Blood Negative (Negative) Urine Nitrite Negative (Negative) Urine Bilirubin Negative (Negative) Urine Urobilinogen 0.2 (0.2) mg/dL Ur Leukocyte Esterase Negative (Negative) U Hyaline Cast (Auto) NONE SEEN (0-2) /LPF Urine Microscopic RBC 0-2 (0-5) /HPF Urine Microscopic WBC 0-2 (0-5) /HPF Ur Epithelial Cells None Seen (None Seen) /HPF Urine Bacteria None Seen (None Seen) /HPF Urine Culture Reflexed NO (NO) Urine Opiates Level NEGATIVE (NEGATIVE) Ur Methadone NEGATIVE (NEGATIVE) Urine Barbiturates NEGATIVE (NEGATIVE) Ur Phencyclidine (PCP) NEGATIVE (NEGATIVE) Urine Amphetamine NEGATIVE (NEGATIVE) U Benzodiazepine Level NEGATIVE (NEGATIVE) Urine Cocaine NEGATIVE (NEGATIVE) Urine Marijuana (THC) NEGATIVE (NEGATIVE) Ethyl Alcohol < 10 (0-10) mg/dL 06/15/22 Range/Units 07:30 WBC 7.0 (4.0-10.5) x10^3/uL RBC 4.52 (4.1-5.6) x10^6/uL Hgb 12.8 (12.5-18.0) g/dL Hct 38.8 L (42-50) % MCV 85.8 (78-100) fL MCH 28.3 (26-32) pg MCHC 33.0 (32-36) g/dL RDW 14.7 H (11.5-14.0) % Plt Count 385 (150-450) x10^3/uL MPV 8.6 (7.5-11.0) fL Gran % 64.4 (36.0-66.0) % Immature Gran % (Auto) 0.7 H (0.00-0.4) % Nucleat RBC Rel Count 0.0 (0.00-0.1) % Eos # (Auto) 0.12 (0-0.5) x10^3/uL Immature Gran # (Auto) 0.05 H (0.00-0.03) x10^3u/L Absolute Lymphs (auto) 1.66 (1.0-4.6) x10^3/uL Absolute Monos (auto) 0.60 (0.0-1.3) x10^3/uL Absolute Nucleated RBC 0.00 (0.00-0.01) x10^3u/L Lymphocytes % 23.7 L (24.0-44.0) % Monocytes % 8.6 (0.0-12.0) % Eosinophils % 1.7 (0.00-5.0) % Basophils % 0.9 (0.0-0.4) % Absolute Granulocytes 4.52 (1.4-6.9) x10^3/uL Basophils # 0.06 (0-0.4) x10^3/uL Sodium (137-145) mmol/L Potassium (3.5-5.1) mmol/L Chloride (98-107) mmol/L Carbon Dioxide (22-30) mmol/L Anion Gap (5-15) MEQ/L BUN (9-20) mg/dL Creatinine (0.66-1.25) mg/dL Estimated GFR ML/MIN Glucose (74-106) mg/dL Calcium (8.4-10.2) mg/dL Magnesium (1.6-2.3) mg/dL Total Bilirubin (0.2-1.3) mg/dL AST (17-59) U/L ALT (0-50) U/L Alkaline Phosphatase (38-126) U/L Serum Total Protein (6.3-8.2) g/dL Albumin (3.5-5.0) g/dL Thyroxine (T4) (5.53-10.96) ug/dL TSH 3rd Generation (0.47-4.68) mIU/L Urine Color (Yellow) Urine Appearance (Clear) Urine pH (4.6-8.0) Ur Specific [place] (1.005-1.030) Urine Protein (Negative) Urine Glucose (UA) (Negative) mg/dL Urine Ketones (Negative) Urine Blood (Negative) Urine Nitrite (Negative) Urine Bilirubin (Negative) Urine Urobilinogen (0.2) mg/dL Ur Leukocyte Esterase (Negative) U Hyaline Cast (Auto) (0-2) /LPF Urine Microscopic RBC (0-5) /HPF Urine Microscopic WBC (0-5) /HPF Ur Epithelial Cells (None Seen) /HPF Urine Bacteria (None Seen) /HPF Urine Culture Reflexed (NO) Urine Opiates Level (NEGATIVE) Ur Methadone (NEGATIVE) Urine Barbiturates (NEGATIVE) Ur Phencyclidine (PCP) (NEGATIVE) Urine Amphetamine (NEGATIVE) U Benzodiazepine Level (NEGATIVE) Urine Cocaine (NEGATIVE) Urine Marijuana (THC) (NEGATIVE) Ethyl Alcohol (0-10) mg/dL - Progress Progress: improved, re-examined Progress Note: 06/15/22 09:19 CT scan of the head without contrast shows no acute intracranial abnormality 06/15/22 09:21 This patient's medical issue is 1 of moderate complexity. This is based on the patient's complaint, review of his medical history and medication list, history of present illness and findings on physical examination. This prompted me to obtain a CT scan of the head without contrast, place the patient on some intravenous fluids, obtain urinalysis and blood work as well as twelve-lead EKG. We also provided the patient with intravenous IV enalapril to help lower his blood pressure level to an appropriate level. Patient responded well and he is feeling well at the time of discharge. Discharge plan was discussed with the patient and this includes continuing his medication as prescribed, follow-up with his primary care provider and specialist on 06/17/2022 for further evaluation and management. Counseled pt/family regarding: lab results, diagnosis, need for follow-up, rad results Medical Desision Making - Independent Historian Additional History obtained from: It Business Systems Analyst/EMT - External Record(s) Reviewed Records reviewed as a part of evaluation & management: Inpatient - Discussion of managment Reviewed:: Test results Agreed on:: Treatment plan, need for follow-up - Diagnostic Testing Radiological Interpretation: Reviewed by me, Teleradiologist Report - Risk of complications Low Risk: Low risk of morbidity from additional dx testing or treatment - Departure Departure Disposition: Home Clinical Impression: Dizziness, Hypertension Condition: Stable Critical Care Time: No Referrals: ATTILA KAPOOR [Primary Care Provider] - Follow up/PCP as directed Additional Instructions: Continue your medication as prescribed. When you arrive home today take your medication that she did not take this morning. Follow-up with your primary care provider and specialist on 06/17/2022 for further evaluation management.
[2022-06-15] MEDS ORDERED: Sodium Chloride 0.9% 1000 ML 1,000 ML IV SCH (07:00)
[2022-06-15] MEDS ORDERED: Sodium Chloride 0.9% 1000 ML 1,000 ML ONE (07:33)
[2022-06-15 07:43] LABS: Absolute Neutrophil Ct (ANC) 4.52 x10^3/uL (1.4-6.9); BASOPHIL % 0.9 % (0.0-0.4); Basophil (Absolute #) 0.06 x10^3/uL (0-0.4); Eosinophil % 1.7 % (0.00-5.0); Eosinophil (Absolute #) 0.12 x10^3/uL (0-0.5); Hematocrit 38.8 % (42-50); Hemoglobin 12.8 g/dL (12.5-18.0); IMMATURE GRAN # 0.05 x10^3u/L (0.00-0.03); IMMATURE GRAN % 0.7 % (0.00-0.4); Lymphocyte (Absolute #) 1.66 x10^3/uL (1.0-4.6); Lymphocytes % 23.7 % (24.0-44.0); Mean Cell Volume 85.8 fL (78-100); Mean Corpuscular Hemoglobin 28.3 pg (26-32); Mean Platelet Volume 8.6 fL (7.5-11.0); Monocytes % 8.6 % (0.0-12.0); Neutrophil % 64.4 % (36.0-66.0); Platelet Count 385 x10^3/uL (150-450); Red Blood Count 4.52 x10^6/uL (4.1-5.6); Red Cell Distribution Width 14.7 % (11.5-14.0)
[2022-06-15] MEDS ORDERED: ENALAPRILAT 2.5 MG INJECTION IV ONE ×2 (07:53→08:10)
--- NOTE | 2022-06-15 07:57 | XRAY ---
Indication: Dizziness. Multiple contiguous axial images obtained through the head without contrast. Comparison: April 15, 2020 Age-appropriate global atrophy. Stable remote lacunar infarct right basal ganglia. No acute intracranial hemorrhage, abnormal extra-axial fluid collection, or mass effect. Fourth ventricle is midline without hydrocephalus. Barron-white matter differentiation preserved. Bony calvarium intact. Visualized paranasal sinuses and mastoid air cells are clear. Impression: Stable remote lacunar infarct right basal ganglia. No new or acute intracranial abnormalities. Comment: Preliminary interpretation made by C. No critical discrepancy.
[2022-06-15 08:30] LABS: ALBUMIN 4.5 g/dL (3.5-5.0); ALKALINE PHOSPHATASE 93 U/L (38-126); ANION GAP 13.4 MEQ/L (5-15); BLOOD UREA NITROGEN 11 mg/dL (9-20); CHLORIDE 100 mmol/L (98-107); Calcium 8.5 mg/dL (8.4-10.2); Carbon Dioxide 31 mmol/L (22-30); Creatinine 1 0.86 mg/dL (0.66-1.25); EST GLOMERULAR FILTRATION RATE > 60.0 ML/MIN; ETHYL ALCOHOL < 10 mg/dL (0-10); Glucose 137 mg/dL (74-106); Potassium 3.4 mmol/L (3.5-5.1); SGOT/AST 32 U/L (17-59); SGPT/ALT 38 U/L (0-50); SODIUM 141 mmol/L (137-145); T4 (Thyroxine) 9.03 ug/dL (5.53-10.96); Total Protein 7.8 g/dL (6.3-8.2)
[2022-06-15 08:33] LABS: Appearance Cloudy (Clear); Bacteria None Seen /HPF (None Seen); Bilirubin Negative (Negative); Blood Negative (Negative); Epithelial Cells None Seen /HPF (None Seen); Glucose, Urine Negative (Negative); Hyaline Casts NONE SEEN /LPF (0-2); Ketones Negative (Negative); Leukocyte Esterase Negative (Negative); Nitrite Negative (Negative); Protein,Urine Dip Negative (Negative); RBC 0-2 /HPF (0-5); Urobilinogen 0.2 mg/dL (0.2); WBC 0-2 /HPF (0-5)
[2022-06-15 08:35] LABS: ADD URINE CULTURE? NO (NO)
[2022-06-15 08:48] LABS: Amphetamine,Urine NEGATIVE (NEGATIVE); Barbiturate,Urine NEGATIVE (NEGATIVE); Benzodiazepine,Urine NEGATIVE (NEGATIVE); Cocaine,Urine NEGATIVE (NEGATIVE); Methadone,Urine NEGATIVE (NEGATIVE); Opiate,Urine NEGATIVE (NEGATIVE); PCP,Urine NEGATIVE (NEGATIVE); THC,Urine NEGATIVE (NEGATIVE)
[2022-06-15 09:48] VITALS: BP 168/96; PULSE 63; O2SAT 97
== END 2022-06-15 09:48 | disposition home or self-care (01) ==
LOC: ED 06:53
DX: R42 Dizziness and giddiness (principal); I10 Essential (primary) hypertension; Z79.899 Other long term (current) drug therapy; Z28.310 Unvaccinated for COVID-19
CPT/HCPCS: 36000; 36415; 70450; 80053; 80307; 81001; 83735; 84436; 84443; 85025; 93005; 96374; 99284; G0480; 82077

== ENCOUNTER 2023-11-27 09:00 | Emergency (ER) | payer MEDICARE ==
[2023-11-27 09:06] VITALS: TEMP 98.1
[2023-11-27] MEDS ORDERED: DUONEB 0.5-3 MG/3 ml Neb IH ONE (09:46)
[2023-11-27] MEDS: BABY ASPIRIN 81 MG CHEW PO ONE (09:56)
[2023-11-27] MEDS ORDERED: BABY ASPIRIN 81 MG CHEW ONE (09:56)
[2023-11-27] MEDS: DUONEB 0.5-3 MG/3 ml Neb IH ONE (10:04)
[2023-11-27 10:10] LABS: Absolute Neutrophil Ct (ANC) 3.82 x10^3/uL (1.78-5.38); BASOPHIL % 0.9 % (0.2-1.2); Basophil (Absolute #) 0.05 x10^3/uL (0.01-0.08); Eosinophil % 2.2 % (0.8-7.0); Eosinophil (Absolute #) 0.13 x10^3/uL (0.04-0.54); Hematocrit 39.6 % (40.1-51.0); Hemoglobin 13.5 g/dL (13.7-17.5); IMMATURE GRAN # 0.04 x10^3u/L (0.001-0.031); IMMATURE GRAN % 0.7 % (0.001-0.429); Lymphocyte (Absolute #) 1.47 x10^3/uL (1.32-3.57); Lymphocytes % 25.1 % (21.8-53.1); Mean Cell Volume 84.3 fL (79.0-92.2); Mean Corpuscular Hemoglobin 28.7 pg (25.7-32.2); Mean Corpuscular Hgb Concent. 34.1 g/dL (32.3-36.5); Mean Platelet Volume 9.1 fL (9.4-12.4); Monocyte (Absolute #) 0.34 x10^3/uL (0.30-0.82); Monocytes % 5.8 % (5.3-12.2); Neutrophil % 65.3 % (34.0-67.9); Platelet Count 345 x10^3/uL (163-337); Red Cell Distribution Width 14.1 % (11.6-14.4); White Blood Count 5.9 x10^3/uL (4.23-9.07)
[2023-11-27 10:24] LABS: ALBUMIN 4.2 g/dL (3.5-5.0); ALKALINE PHOSPHATASE 76 U/L (38-126); ANION GAP 13.5 MEQ/L (5-15); BLOOD UREA NITROGEN 13 mg/dL (9-20); CHLORIDE 106 mmol/L (98-107); Calcium 8.8 mg/dL (8.4-10.2); Carbon Dioxide 23 mmol/L (22-30); EST GLOMERULAR FILTRATION RATE 103.9 ML/MIN; Glucose 119 mg/dL (74-106); NT PRO BNPII < 20.0 pg/mL (<300); Potassium 3.4 mmol/L (3.5-5.1); SGOT/AST 39 U/L (17-59); SGPT/ALT 48 U/L (0-50); SODIUM 139 mmol/L (135-145); Total Protein 7.3 g/dL (6.3-8.2)
--- NOTE | 2023-11-27 10:26 | XRAY ---
Indication: Chest pain. Comparison: None Portable chest is underinflated without focal infiltrate, consolidation, large effusion. Heart not enlarged with previous CT proven small hiatal hernia. Bony thorax intact. No acute findings.
[2023-11-27] MEDS ORDERED: TRANDATE 20 MG/4 ML SYRINGE IV ONE (10:54)
[2023-11-27] MEDS: TRANDATE 20 MG/4 ML SYRINGE IV ONE (10:55)
--- NOTE | 2023-11-27 13:58 | ERPHSYRPT ---
- History of Present Illness Time Seen by Provider: 11/27/23 09:30 Historian: patient Exam Limitations: no limitations Patient Subjective Stated Complaint: PT states "I have been having chest pain that has been coming and going for the past couple of days." Triage Nursing Assessment: Pt presented alert oriented X 3, skin pwd. Pt ambulates with an upright steady gait, able to speak in clear full sentences. Pt resting comfortably on the bed. Physician History: 57 years old male with history of thyroid cancer s/p resection, Marcus's esophagus, COPD, hypertension, diabetes mellitus who presented in the ER with 3 days history of right-sided chest pain off and on with no associated palpitations or shortness of breath. Patient reports no significant aggravating or relieving factors, dull aching mild in nature with no associated cough congestion. Denies any fever or chills. Patient reports having similar chest pains multiple times in the past and has been thoroughly worked up with a negative cardiac cath couple of years ago. Patient is also concerned about his blood pressure which usually is staying high lately and upper 100s/lower 200s systolic. Denies any headache numbness tingling or focal weakness. Aspirin Treatment Today: unknown Allergies/Adverse Reactions: Penicillins Allergy (Severe, Verified 06/15/22 06:58) Anaphylactic Reaction Home Medications: Levothyroxine Sodium 150 Mcg [Synthroid 150 Mcg] 125 mcg PO DAILY 03/05/19 [History] Amlodipine Besylate 5 mg [Norvasc 5 mg] 5 mg PO DAILY 06/15/22 [History] Budesonide 0.5 mg/2 ml [Pulmicort 0.5 mg/2 ml Respules] 0.5 mg IH DAILY 11/27/23 [History] Empagliflozin [Jardiance] 25 mg PO DAILY 11/27/23 [History] Losartan/Hydrochlorothiazide [Hyzaar 50-12.5 Tablet] 1 each PO DAILY 11/27/23 [History] Semaglutide [Ozempic] 1 mg SQ WEEKLY 11/27/23 [History] Hx Tetanus, Diphtheria Vaccination/Date Given: Yes Hx Influenza Vaccination/Date Given: Yes Hx Pneumococcal Vaccination/Date Given: Yes Immunizations Up to Date: No Travel Risk - International Travel Have you traveled outside of the country in past 3 weeks: No - Emerging Infectious Disease Are you exhibiting symptoms associated with any current EIDs: No - Review of Systems Constitutional: No Symptoms Eyes: No Symptoms Ears, Nose, & Throat: No Symptoms Respiratory: No Symptoms Cardiac: Chest Pain Abdominal/Gastrointestinal: No Symptoms Genitourinary Symptoms: No Symptoms Musculoskeletal: No Symptoms Skin: No Symptoms Neurological: No Symptoms Endocrine: No Symptoms Hematologic/Lymphatic: No Symptoms Immunological/Allergic: No Symptoms - Past Medical History Pertinent Past Medical History: Yes Neurological History: TIA ENT History: No Pertinent History Cardiac History: Coronary Artery Disease, Hypertension Respiratory History: COPD Endocrine Medical History: Thyroid Cancer Musculoskeletal History: No Pertinent History GI Medical History: No Pertinent History History: No Pertinent History Psycho-Social History: No Pertinent History Male Reproductive Disorders: No Pertinent History Other Medical History: THYROID CANCER WITH METS, esophagus cancer, ms, narcolepsy - Past Surgical History Past Surgical History: Yes Neuro Surgical History: No Pertinent History Cardiac: No Pertinent History Respiratory: No Pertinent History Gastrointestinal: No Pertinent History Genitourinary: No Pertinent History Musculoskeletal: No Pertinent History Male Surgical History: No Pertinent History Other Surgical History: THYROIDECTOMY, ESOPHAGUS SURGERY - Social History Smoking Status: Never smoker Exposure to second hand smoke: No Drug Use: none Patient Lives Alone: Yes - Social Determinants of Health Will the patient participate in the screening: Declined to provide - Nursing Vital Signs Nursing Vital Signs: Initial Vital Signs Temperature 98.1 F 11/27/23 09:00 Pulse Rate 82 11/27/23 09:00 Respiratory Rate 18 11/27/23 09:00 Blood Pressure 190/116 11/27/23 09:00 O2 Sat by Pulse Oximetry 98 11/27/23 09:00 Pain Scale Pain Intensity 0 - Physical Exam General Appearance: no apparent distress, alert Eye Exam: PERRL/EOMI Ears, Nose, Throat Exam: normal ENT inspection Neck Exam: normal inspection, non-tender, supple, full range of motion Respiratory Exam: normal breath sounds, lungs clear Cardiovascular Exam: regular rate/rhythm, normal heart sounds Gastrointestinal/Abdomen Exam: soft, normal bowel sounds, No tenderness Back Exam: normal inspection, normal range of motion Extremity Exam: normal inspection, normal range of motion Neurologic Exam: alert, oriented x 3, cooperative Skin Exam: normal color SpO2 Interpretation: normal SpO2: 99 O2 Delivery: Room Air - Course EKG Interpreted by Me: RATE (79), Sinus Rhythm, NORMAL AXIS, Non-specific ST Changes, Other (Borderline prolonged QTc interval) Ordered Tests: Active Orders 24 hr Category Date Time Status Intelligence Research Specialist STAT Care 11/27/23 09:41 Completed EKG-ER Only STAT Care 11/27/23 09:40 Completed IV Insertion STAT Care 11/27/23 09:40 Completed CHEST 1 VIEW (PORTABLE) Stat Exams 11/27/23 09:41 Completed CBC W DIFF Stat Lab 11/27/23 09:59 Completed CMP Stat Lab 11/27/23 09:59 Completed D-DIMER QUANTITATIVE Stat Lab 11/27/23 09:59 Completed NT PRO BNPII Stat Lab 11/27/23 09:59 Completed TROPONIN Q4H Lab 11/27/23 09:59 Completed TROPONIN Q4H Lab 11/27/23 13:15 Completed Respiratory Therapy Assessment DAILY RT 11/27/23 10:04 Completed Medication Summary Discontinued Medications Generic Name Dose Route Start Last Admin Trade Name Freq PRN Reason Stop Dose Admin Acetaminophen 975 mg 11/27/23 13:51 11/27/23 14:16 Acetaminophen 325 Mg Tablet PO 11/27/23 13:52 975 mg STAT STA Administration Acetaminophen Confirm 11/27/23 14:15 Acetaminophen 325 Mg Tablet Administered 11/27/23 14:16 Dose 975 mg .ROUTE .STK-MED ONE Albuterol/Ipratropium 3 ml 11/27/23 09:41 11/27/23 10:04 Ipratropium/Albuterol Sulfate 3 Ml Ampul.Neb IH 11/27/23 09:42 3 ml STAT ONE Administration Albuterol/Ipratropium Confirm 11/27/23 09:46 Ipratropium/Albuterol Sulfate 3 Ml Ampul.Neb Administered 11/27/23 09:47 Dose 3 ml IH .STK-MED ONE Aspirin 324 mg 11/27/23 09:40 11/27/23 09:56 Aspirin 81 Mg Tab.Chew PO 11/27/23 09:41 324 mg STAT ONE Administration Aspirin Confirm 11/27/23 09:56 Aspirin 81 Mg Tab.Chew Administered 11/27/23 09:57 Dose 324 mg .ROUTE .STK-MED ONE Labetalol HCl 10 mg 11/27/23 10:52 11/27/23 10:55 Labetalol Hcl 20 Mg/4 Ml Disp.Syringe IV 11/27/23 10:53 10 mg STAT ONE Administration Labetalol HCl Confirm 11/27/23 10:54 Labetalol Hcl 20 Mg/4 Ml Disp.Syringe Administered 11/27/23 10:55 Dose 20 mg IV .STK-MED ONE Lab/Rad Data: Laboratory Result Diagrams 11/27/23 09:59 11/27/23 09:59 Laboratory Results 11/27/23 11/27/23 11/27/23 Range/Units 13:15 09:59 09:59 WBC (4.23-9.07) x10^3/uL RBC (4.63-6.08) x10^6/uL Hgb (13.7-17.5) g/dL Hct (40.1-51.0) % MCV (79.0-92.2) fL MCH (25.7-32.2) pg MCHC (32.3-36.5) g/dL RDW (11.6-14.4) % Plt Count (163-337) x10^3/uL MPV (9.4-12.4) fL Gran % (34.0-67.9) % Immature Gran % (Auto) (0.001-0.429) % Nucleat RBC Rel Count (0.00-0.2) % Eos # (Auto) (0.04-0.54) x10^3/uL Immature Gran # (Auto) (0.001-0.031) x10^3u/L Absolute Lymphs (auto) (1.32-3.57) x10^3/uL Absolute Monos (auto) (0.30-0.82) x10^3/uL Absolute Nucleated RBC (0.00-0.012) x10^3u/L Lymphocytes % (21.8-53.1) % Monocytes % (5.3-12.2) % Eosinophils % (0.8-7.0) % Basophils % (0.2-1.2) % Absolute Granulocytes (1.78-5.38) x10^3/uL Basophils # (0.01-0.08) x10^3/uL D-Dimer < 0.19 (0.0-0.50) mg/L Sodium (135-145) mmol/L Potassium (3.5-5.1) mmol/L Chloride (98-107) mmol/L Carbon Dioxide (22-30) mmol/L Anion Gap (5-15) MEQ/L BUN (9-20) mg/dL Creatinine (0.66-1.25) mg/dL Estimated GFR ML/MIN Glucose (74-106) mg/dL Calcium (8.4-10.2) mg/dL Total Bilirubin (0.2-1.3) mg/dL AST (17-59) U/L ALT (0-50) U/L Alkaline Phosphatase (38-126) U/L Troponin I < 0.012 < 0.012 (0.000-0.033) ng/mL NT-Pro-B Natriuret Pep (<300) pg/mL Serum Total Protein (6.3-8.2) g/dL Albumin (3.5-5.0) g/dL 11/27/23 11/27/23 Range/Units 09:59 09:59 WBC 5.9 (4.23-9.07) x10^3/uL RBC 4.70 (4.63-6.08) x10^6/uL Hgb 13.5 L (13.7-17.5) g/dL Hct 39.6 L (40.1-51.0) % MCV 84.3 (79.0-92.2) fL MCH 28.7 (25.7-32.2) pg MCHC 34.1 (32.3-36.5) g/dL RDW 14.1 (11.6-14.4) % Plt Count 345 H (163-337) x10^3/uL MPV 9.1 L (9.4-12.4) fL Gran % 65.3 (34.0-67.9) % Immature Gran % (Auto) 0.7 H (0.001-0.429) % Nucleat RBC Rel Count 0.0 (0.00-0.2) % Eos # (Auto) 0.13 (0.04-0.54) x10^3/uL Immature Gran # (Auto) 0.04 H (0.001-0.031) x10^3u/L Absolute Lymphs (auto) 1.47 (1.32-3.57) x10^3/uL Absolute Monos (auto) 0.34 (0.30-0.82) x10^3/uL Absolute Nucleated RBC 0.00 (0.00-0.012) x10^3u/L Lymphocytes % 25.1 (21.8-53.1) % Monocytes % 5.8 (5.3-12.2) % Eosinophils % 2.2 (0.8-7.0) % Basophils % 0.9 (0.2-1.2) % Absolute Granulocytes 3.82 (1.78-5.38) x10^3/uL Basophils # 0.05 (0.01-0.08) x10^3/uL D-Dimer (0.0-0.50) mg/L Sodium 139 (135-145) mmol/L Potassium 3.4 L (3.5-5.1) mmol/L Chloride 106 (98-107) mmol/L Carbon Dioxide 23 (22-30) mmol/L Anion Gap 13.5 (5-15) MEQ/L BUN 13 (9-20) mg/dL Creatinine 0.80 (0.66-1.25) mg/dL Estimated GFR 103.9 ML/MIN Glucose 119 H (74-106) mg/dL Calcium 8.8 (8.4-10.2) mg/dL Total Bilirubin 0.60 (0.2-1.3) mg/dL AST 39 (17-59) U/L ALT 48 (0-50) U/L Alkaline Phosphatase 76 (38-126) U/L Troponin I (0.000-0.033) ng/mL NT-Pro-B Natriuret Pep < 20.0 (<300) pg/mL Serum Total Protein 7.3 (6.3-8.2) g/dL Albumin 4.2 (3.5-5.0) g/dL - Progress Progress: improved, re-examined Air Movement: good Progress Note: 11/27/23 13:56 57-year-old is evaluated in the ER for right-sided chest pain off and on for the last 3 days with no difficulty breathing. Patient does have COPD, had minimal wheezing, given DuoNeb, feeling much better on reevaluation. Patient EKG is normal sinus rhythm with no acute ST elevations. Negative troponins x 2. Negative D-dimers. Normal white count and fairly unremarkable chemistries. Patient's blood pressure was not 180s/190s, given labetalol and improved. Patient denies any chest pain on reevaluation. He has negative cardiac cath couple of years ago. Patient is established with cardiology Dr. Boyce at [facility]. Do not think patient needs to be admitted with his pain going on for last 3 days and on the right side, negative troponins x 2 and D-dimer, I think it is reasonable to discharge and have him outpatient follow-up. I have shared the results of workup with patient and family. Recommended controlling blood pressure, keeping a log and will give clonidine for a few days to take as needed until he can be seen by primary care to see adjust medications. Discussed signs symptoms of worsening needing return to ER which he seems understanding. Stable for discharge. Blood Culture(s) Obtained: No Antibiotics given: No Counseled pt/family regarding: lab results, diagnosis, rad results Medical Desision Making - Independent Historian Additional History obtained from: Spouse - Diagnostic Testing Diagnostic test were ordered, analyzed, and reviewed by me: Yes Radiological Interpretation: Reviewed by me - Risk of complications The pt has a mod risk of morbidity or mortality based on: Need for prescription drug management - Departure Departure Disposition: Home Clinical Impression: Atypical chest pain, Uncontrolled hypertension Condition: Stable Critical Care Time: No Referrals: ATTILA KAPOOR [Primary Care Provider] - Follow up with PCP 1 day COLE BOYCE MD [CONSULTING PHYSICIAN] - Follow up other (Call for appointment) Instructions: Angina (DC), High Blood Pressure ED Additional Instructions: Monitor your blood pressure regularly, keep a log follow-up with PCP for reevaluation. Also follow-up with cardiology for reevaluation of chest pain. Return to ER for persistent chest pain or if having difficulty breathing etc. Take clonidine as needed for uncontrolled hypertension. Take low-salt diet, exercise and weight loss. Prescriptions: Clonidine HCl 0.1 mg [Clonidine 0.1 mg Tablet] 0.1 mg PO Q12H PRN PRN 10 Days #10 tablet PRN Reason: Hypertension
[2023-11-27 14:07] VITALS: RESP 14
[2023-11-27] MEDS ORDERED: TYLENOL 325 MG ONE (14:15)
[2023-11-27] MEDS: TYLENOL 325 MG PO STA (14:16)
[2023-11-27 14:21] VITALS: BP 169/129; PULSE 78
[2023-11-27 18:07] VITALS: O2SAT 99
== END 2023-11-27 14:24 | disposition home or self-care (01) ==
LOC: ED 09:00
DX: R07.89 Other chest pain (principal); I10 Essential (primary) hypertension; E11.9 Type 2 diabetes mellitus without complications; Z79.84 Long term (current) use of oral hypoglycemic drugs; Z79.85 Long-term (current) use of injectable non-insulin antidiabetic drugs; Z79.899 Other long term (current) drug therapy
CPT/HCPCS: 36000; 36415; 71045; 80053; 83880; 84484; 85025; 85379; 93005; 93041; 94640; 96374; 96375; 99284; A9270-GY